=== PATIENT | female | born 1965 | race Hispanic/Latino ===

== ENCOUNTER 2022-03-06 12:44 | Inpatient (IN) | payer MEDICARE ==
[2022-03-06] MEDS ORDERED: INSULIN REGULAR, HUMAN 100 UNITS/1 ML SUB-Q ONE (21:03)
[2022-03-06] MEDS: traZODone 50 MG TAB PO SCH (21:57)
[2022-03-06] MEDS: INSULIN LISPRO 100 UNIT/ML SUB-Q SCH (22:05)
[2022-03-07] MEDS ORDERED: DEXTROSE 50% IN WATER (25GM) 50 ML SYRINGE IV ONE (05:00)
[2022-03-07] MEDS ORDERED: glipiZIDE 10 MG TAB PO SCH (08:00)
--- NOTE | 2022-03-07 08:32 | History and Physical Report ---
GP History & Physical - History of Present Illness Date of admission: 03/06/22 Date of Examination: 03/07/22 Reason for Admission: Danger to self, Danger to others, Failure of Outpatient Treatment Chief Complaint: suicidal ideation History of Present Illness: The patient is a 56 year old female with history of schizoaffective disorder who is admitted for continued stabilization. The patient presented to the ED with s uicidal ideation and auditory hallucinations, off medications for 3 days. The patient was seen today. She is calm, alert and oriented x4. She reports ongoing depression and suicidal ideation for the past 5 days. She reports stressors such as " I'm trying to move to another location and I have to pack everything by myself which is stressful." She endorses depression with suicidal ideation however, she has no plan; the patient also admits having auditory hallucinations " voices telling me to harm myself." She denies homicidal and visual hallucinations. PAST PSYCHIATRIC HISTORY: Diagnoses: schizoaffective Suicide attempts or Self-harm behavior:Yes Prior psychiatric hospitalizations: Yes Substance Abuse history: Denies Previous psychiatric medications tried: Effexor, Remeron, Seroquel Outpatient treatment: Denies PAST MEDICAL HISTORY: Family Psychiatric History: None reported or documented SOCIAL HISTORY Marital Status: Single Living Arrangements: Lives alone Employment Status: Unemployed Access to guns/weapons: Denies Education: 12th grade History of Abuse:Denies Legal History: Denies REVIEW OF SYSTEMS Constitutional: Negative for weight loss ENT: Negative for stridor Respiratory: Negative for cough or hemoptysis All other systems reviewed and are negative MENTAL STATUS EXAMINATION General Appearance and Behavior: Age appropriate, wearing appropriate clothes, cooperative, polite with questioning, good eye contact Cooperation: cooperative Psychomotor Behavior: Psychomotor normal Mood: depressed Affect and affective range: congruent with stated affect Thought Process: Goal directed Thought Content: suicidal/hallucinations Speech: Normal volume, Regular rate and rhythm Suicidal Ideation: Yes Homicidal Ideation: Denies Hallucination: Auditory Delusions: None Impulse Control: Limited Insight and Judgment: Limited Memory: Intact Attention: attentive Orientation: Alert and oriented Diagnosis: Schizoaffective Disorder Treatment Plan Patient admitted for inpatient psychiatric evaluation, medication adjustment and close monitoring The patient's behavior, mood, sleep and appetite will be closely monitored. Patient enrolled in individual and group therapeutic sessions and encouraged to attend. Patient provided with a safe and structured environment. Patient's physical health needs will be addressed by the Hospitalist. Hospitalist Consulted Labs including CBC, CMP, Lipid profile and Hemoglobin A1C levels ordered for baseline reference Social Assessment will be completed and the Track Grinder will work with patient and family to ensure a suitable and safe disposition Medication adjustment will be made as clinically indicated Continue home meds Usual Wellness Mandaen/Preservation: - Start Trazodone 50 mg po QHS & 50 mg po QHS PRN between 10 PM & 2 AM for insomnia - Start Melatonin 5 mg po QHS to promote circadian rhythm The patient agreed on the treatment plan, understood the risk, benefit, alternative treatment, potential consequence of no treatment, and gave informed consent. Estimated days: 7 Post hospital care: primary care provider, psychiatric provider Case staffed with Dr. Tee Legal Status: Voluntary Reaction to Hospitalization: Accepting Medications and Allergies Allergies Allergy/AdvReac Type Severity Reaction Status Date / Time Penicillins Allergy Rash Verified 03/06/22 18:02 prochlorperazine Allergy Seizure Verified 03/06/22 18:03 [From Compazine] codeine AdvReac Vomiting Verified 03/06/22 18:04 Home Medications Medication Instructions Recorded Confirmed Last Taken Type ARIPiprazole [Abilify] 30 mg PO QDAY 03/06/22 03/06/22 Unknown History AtorvaSTATin [Lipitor] 20 mg PO QHS 03/06/22 03/06/22 Unknown History Levothyroxine [Synthroid] 88 mcg PO QAM 03/06/22 03/06/22 Unknown History Mirtazapine [Remeron] 30 mg PO QHS 03/06/22 03/06/22 Unknown History Trazodone HCl 150 mg PO QHS 03/06/22 03/06/22 Unknown History Venlafaxine [Effexor] 75 mg PO QDAY 03/06/22 03/06/22 Unknown History carvediloL [Coreg] 3.125 mg PO BID 03/06/22 03/06/22 Unknown History glipiZIDE [Glucotrol] 1 tab PO BID 03/06/22 03/06/22 Unknown History hydrOXYzine HCL [Atarax] 25 mg PO QDAY 03/06/22 03/06/22 Unknown History metFORMIN [Glucophage] 500 mg PO BID 03/06/22 03/06/22 Unknown History ARIPiprazole [Aripiprazole] 30 mg PO DAILY 03/07/22 03/07/22 Unknown History Venlafaxine HCl [Venlafaxine HCl 150 mg PO DAILY 03/07/22 03/07/22 Unknown History ER] Active Meds: Active Medications Atorvastatin Calcium (Atorvastatin 20 Mg Tab) 20 mg PO QHS [facility] Last Admin: 03/06/22 21:58 Dose: 20 mg Carvedilol (Carvedilol 3.125 Mg Tab) 3.125 mg PO BID [facility] Glipizide (Glipizide 10 Mg Tab) 10 mg PO BIDDIAB [facility] Insulin Human Lispro (Insulin Lispro 100 Unit/Ml) 0 unit SUB-Q ACHS [facility]; Protocol Last Admin: 03/06/22 22:05 Dose: Not Given Metformin HCl (Metformin 500 Mg Tab) 500 mg PO BIDDIAB [facility] Trazodone HCl (Trazodone 50 Mg Tab) 150 mg PO QHS [facility] Last Admin: 03/06/22 21:57 Dose: 150 mg Results - Results Labs/Vitals: Laboratory Last Values POC Glucose 238 mg/dL (70-105) H 03/07/22 06:13 Last Vital Signs Temp 98.4 F 03/06/22 22:00 Pulse 98 H 03/06/22 22:00 Resp 18 03/06/22 22:00 BP 137/60 03/06/22 22:00 Pulse Ox 96 03/06/22 22:00 Physical Examination - Constitutional Vitals: Vital Signs Temp Pulse Resp BP Pulse Ox 98.4 F 98 H 18 137/60 96 03/06/22 22:00 03/06/22 22:00 03/06/22 22:00 03/06/22 22:00 03/06/22 22:00 Temperature -Last 24 Hours Temperature 98.4 F Temperature 98.4 F Mental Status Exam - Vital signs Last Vital Signs Temp 98.4 F 03/06/22 22:00 Pulse 98 H 03/06/22 22:00 Resp 18 03/06/22 22:00 BP 137/60 03/06/22 22:00 Pulse Ox 96 03/06/22 22:00 Physician Certification - Certification Statement Physician Certification Statement: This is an acknowledgement statement that IRLANDA LOPES is a 56 year old F who requires inpatient psychiatric admission for treatment which could reasonably be expected to improve the patient's condition for Estimated period of time patient will need to remain in the hospital: [ ] Plan for post-hospital care: [ ]
[2022-03-07] MEDS: INSULIN LISPRO 100 UNIT/ML SUB-Q SCH ×4 (09:20→21:25)
[2022-03-07] MEDS ORDERED: INSULIN LISPRO 100 UNIT/ML SUB-Q NR (09:21)
[2022-03-07] MEDS: carvediloL 3.125 MG TAB PO SCH ×2 (09:44→21:24)
[2022-03-07] MEDS: hydrOXYzine HCL 25 MG TAB PO SCH (09:44)
[2022-03-07] MEDS: ARIPiprazole 15 MG TAB PO SCH (09:45)
[2022-03-07] MEDS: metFORMIN 500 MG TAB PO SCH ×2 (09:45→16:26)
[2022-03-07] MEDS ORDERED: ARIPIPRAZOLE 30 MG PO SCH (10:00)
[2022-03-07] MEDS ORDERED: VENLAFAXINE HCL 150 MG PO SCH (10:00)
[2022-03-07] MEDS ORDERED: VENLAFAXINE 75 MG TAB PO SCH (10:00)
[2022-03-07] MEDS: VENLAFAXINE 75 MG TAB PO SCH (10:29)
[2022-03-07] MEDS: LEVOTHYROXINE 88 MCG TAB PO SCH (10:32)
--- NOTE | 2022-03-07 11:41 | Consultation ---
History of Present Illness - Reason for Consult Consult date: 03/07/22 Diabetes mellitus Requesting physician: SEBASTIAN VELASQUEZ - History of Present Illness The patient is a 56 year old female with history of DM, cad, chf, depression, bipolar, schizoaffective disorder who is admitted for continued stabilization. The patient presented to the ED with suicidal ideation and auditory hallucinations, off medications for 3 days. The patient was seen today. She is calm, alert and oriented x4. She reports ongoing depression and suicidal ideation for the past 5 days. She reports stressors such as " I'm trying to move to another location and I have to pack everything by myself which is stressful." She endorses depression with suicidal ideation however, she has no plan; the patient also admits having auditory hallucinations " voices telling me to harm myself." She denies homicidal and visual hallucinations. PAST PSYCHIATRIC HISTORY: Diagnoses: schizoaffective Suicide attempts or Self-harm behavior:Yes Prior psychiatric hospitalizations: Yes Substance Abuse history: Denies Previous psychiatric medications tried: Effexor, Remeron, Seroquel Past History Past Medical History: anemia, diabetes Medications and Allergies Allergies Allergy/AdvReac Type Severity Reaction Status Date / Time Penicillins Allergy Rash Verified 03/06/22 18:02 prochlorperazine Allergy Seizure Verified 03/06/22 18:03 [From Compazine] codeine AdvReac Vomiting Verified 03/06/22 18:04 Home Medications Medication Instructions Recorded Confirmed Last Taken Type ARIPiprazole [Abilify] 30 mg PO QDAY 03/06/22 03/06/22 Unknown History AtorvaSTATin [Lipitor] 20 mg PO QHS 03/06/22 03/06/22 Unknown History Levothyroxine [Synthroid] 88 mcg PO QAM 03/06/22 03/06/22 Unknown History Mirtazapine [Remeron] 30 mg PO QHS 03/06/22 03/06/22 Unknown History Trazodone HCl 150 mg PO QHS 03/06/22 03/06/22 Unknown History Venlafaxine [Effexor] 75 mg PO QDAY 03/06/22 03/06/22 Unknown History carvediloL [Coreg] 3.125 mg PO BID 03/06/22 03/06/22 Unknown History glipiZIDE [Glucotrol] 1 tab PO BID 03/06/22 03/06/22 Unknown History hydrOXYzine HCL [Atarax] 25 mg PO QDAY 03/06/22 03/06/22 Unknown History metFORMIN [Glucophage] 500 mg PO BID 03/06/22 03/06/22 Unknown History ARIPiprazole [Aripiprazole] 30 mg PO DAILY 03/07/22 03/07/22 Unknown History Venlafaxine HCl [Venlafaxine HCl 150 mg PO DAILY 03/07/22 03/07/22 Unknown History ER] Active Meds: Active Medications Aripiprazole (Aripiprazole 15 Mg Tab) 30 mg PO QDAY [facility] Last Admin: 03/07/22 09:45 Dose: 30 mg Atorvastatin Calcium (Atorvastatin 20 Mg Tab) 20 mg PO QHS [facility] Last Admin: 03/06/22 21:58 Dose: 20 mg Carvedilol (Carvedilol 3.125 Mg Tab) 3.125 mg PO BID [facility] Last Admin: 03/07/22 09:44 Dose: 3.125 mg Glipizide ([facility] 10 Mg Tab) [facility] Hydroxyzine HCl (Hydroxyzine Hcl 25 Mg Tab) 25 mg PO QDAY [facility] Last Admin: 03/07/22 09:44 Dose: 25 mg Insulin Human Lispro (Insulin Lispro 100 Unit/Ml) 0 unit SUB-Q [facility]; Protocol Last Admin: 03/07/22 09:20 Dose: 10 unit Levothyroxine Sodium (Levothyroxine 88 Mcg Tab) 88 mcg PO DAILY@0600 [facility] Last Admin: 03/07/22 10:32 Dose: 88 mcg Metformin HCl (Metformin 500 Mg Tab) 500 mg PO BIDDIAB [facility] Last Admin: 03/07/22 09:45 Dose: 500 mg Trazodone HCl (Trazodone 50 Mg Tab) 150 mg PO QHS [facility] Last Admin: 03/06/22 21:57 Dose: 150 mg Venlafaxine HCl (Venlafaxine 75 Mg Tab) 225 mg PO DAILY [facility] Last Admin: 03/07/22 10:29 Dose: 225 mg Review of Systems All systems: negative Ears, nose, mouth and throat: no ear pain, no ear discharge, no tinnitis, no decreased hearing, no nose pain, no nasal congestion, no sinus pressure, no mouth pain, no dysphagia, no sore throat, no swelling in mouth Cardiovascular: no orthopnea, no palpitations, no edema, no syncope, no lightheadedness, no shortness of breath, no high blood pressure Respiratory: no cough, no cough with sputum, no hemoptysis Gastrointestinal: no nausea, no vomiting, no diarrhea, no constipation, no melena, no hematochezia Genitourinary Female: no pelvic pain, no flank pain, no urinary frequency, no stress incontinence, no incomplete emptying Musculoskeletal: no neck pain, no arm numbness/tingling, no low back pain, no shooting leg pain, no muscle weakness, no muscle cramps Exam - Physical Exam Narrative exam: VITAL SIGNS: Reviewed. GENERAL: The patient appears normally developed, Vital signs as documented. HEAD: No signs of head trauma. EYES: Pupils are equal. Extraocular motions intact. EARS: Hearing grossly intact. MOUTH: Oropharynx is normal. NECK: No adenopathy, no JVD. CHEST: Chest with clear breath sounds bilaterally. No wheezes, rales, or rhonchi. CARDIAC: Regular rate and rhythm. S1 and S2, without murmurs, gallops, or rubs. VASCULAR: No Edema. Peripheral pulses normal and equal in all extremities. ABDOMEN: Soft, non tender and non distended. No rebound or guarding, and no masses palpated. Bowel Sounds normal. MUSCULOSKELETAL: Good range of motion of all major joints. Extremities without clubbing, cyanosis or edema. NEUROLOGIC EXAM: Alert and oriented x 3 No focal sensory or strength deficits. Speech normal. Follows commands. PSYCHIATRIC: Mood normal. SKIN: detail exam as documented in skin assessment - Constitutional Vitals: Temp Pulse Resp BP Pulse Ox 98.4 F 102 H 18 121/88 96 03/06/22 22:00 03/07/22 09:44 03/06/22 22:00 03/07/22 09:44 03/06/22 22:00 Results - Labs Labs: Abnormal lab results 03/06/22 03/07/22 03/07/22 Range/Units 23:33 01:37 04:42 POC Glucose 582 H 241 H 38 L (70-105) mg/dL 03/07/22 03/07/22 03/07/22 Range/Units 05:08 06:13 06:58 POC Glucose 131 H 238 H 263 H (70-105) mg/dL 03/07/22 03/07/22 03/07/22 Range/Units 08:02 09:02 10:24 POC Glucose 266 H 441 H 367 H (70-105) mg/dL Assessment and Plan The patient is a 56 year old female with history of DM, cad, chf, depression, bipolar, schizoaffective disorder who is admitted for continued stabilization. The patient presented to the ED with suicidal ideation and auditory hallucinations, off medications for 3 days. The patient was seen today. She is calm, alert and oriented x4. She reports ongoing depression and suicidal ideation for the past 5 days. She reports stressors such as " I'm trying to move to another location and I have to pack everything by myself which is stressful." She endorses depression with suicidal ideation however, she has no plan; the patient also admits having auditory hallucinations " voices telling me to harm myself." She denies homicidal and visual hallucinations. Uncontrolled DM HTN Hypothyrodisim plan Adjust insulin management Continue home meds Discussed with nursing staff overnight the patient had experienced hypoglycemia and that subsequently hypoglycemia. We will hold glipizide a.m. dose and only can have her take her p.m. dose. We will monitor blood glucose before meals and at bedtime patient tolerated her diet this morning and finished 90% of meal on her tray. DVT/GI prophy
[2022-03-07] MEDS: traZODone 50 MG TAB PO SCH (21:23)
[2022-03-07] MEDS: glipiZIDE 10 MG TAB PO SCH (21:24)
[2022-03-08] MEDS: LEVOTHYROXINE 88 MCG TAB PO SCH (06:02)
[2022-03-08] MEDS: INSULIN LISPRO 100 UNIT/ML SUB-Q SCH ×4 (08:43→21:34)
[2022-03-08] MEDS: metFORMIN 500 MG TAB PO SCH ×2 (08:44→12:29)
--- NOTE | 2022-03-08 09:16 | Progress Note ---
Subjective Date of service: 03/08/22 Subjective Comment: 03/08: The patient was seen in her room. She reports feeling sad, states depression as 10/10 and continues have auditory hallucinations " voices saying to hurt myself." REVIEW OF SYSTEMS Constitutional: Negative for weight loss ENT: Negative for stridor Respiratory: Negative for cough or hemoptysis All other systems reviewed and are negative MENTAL STATUS EXAMINATION General Appearance and Behavior: Age appropriate, wearing appropriate clothes, cooperative, polite with questioning, good eye contact Cooperation: cooperative Psychomotor Behavior: Psychomotor normal Mood: depressed Affect and affective range: congruent with stated affect Thought Process: Goal directed Thought Content: hallucinations Speech: Normal volume, Regular rate and rhythm Suicidal Ideation:Denies Homicidal Ideation: Denies Hallucination: Auditory Delusions: None Impulse Control: Limited Insight and Judgment: Limited Memory: Intact Attention: attentive Orientation: Alert and oriented Diagnosis: Schizoaffective Disorder Treatment Plan Patient admitted for inpatient psychiatric evaluation, medication adjustment and close monitoring The patient's behavior, mood, sleep and appetite will be closely monitored. Patient enrolled in individual and group therapeutic sessions and encouraged to attend. Patient provided with a safe and structured environment. Patient's physical health needs will be addressed by the Hospitalist. Hospitalist Consulted Labs including CBC, CMP, Lipid profile and Hemoglobin A1C levels ordered for baseline reference Social Assessment will be completed and the Maintenance Service Technician will work with patient and family to ensure a suitable and safe disposition Medication adjustment will be made as clinically indicated Continue home meds Usual Wellness Temple/Preservation: - Start Trazodone 50 mg po QHS & 50 mg po QHS PRN between 10 PM & 2 AM for insomnia - Start Melatonin 5 mg po QHS to promote circadian rhythm The patient agreed on the treatment plan, understood the risk, benefit, alternative treatment, potential consequence of no treatment, and gave informed consent. Estimated days:6 Post hospital care: primary care provider, psychiatric provider Case staffed with Dr. Tee Legal Status: Voluntary Reaction to Hospitalization: Accepting Medications and Allergies Medications and Allergies Allergies Allergy/AdvReac Type Severity Reaction Status Date / Time Penicillins Allergy Rash Verified 03/06/22 18:02 prochlorperazine Allergy Seizure Verified 03/06/22 18:03 [From Compazine] codeine AdvReac Vomiting Verified 03/06/22 18:04 Home Medications Medication Instructions Recorded Confirmed Last Taken Type ARIPiprazole [Abilify] 30 mg PO QDAY 03/06/22 03/06/22 Unknown History AtorvaSTATin [Lipitor] 20 mg PO QHS 03/06/22 03/06/22 Unknown History Levothyroxine [Synthroid] 88 mcg PO QAM 03/06/22 03/06/22 Unknown History Mirtazapine [Remeron] 30 mg PO QHS 03/06/22 03/06/22 Unknown History Trazodone HCl 150 mg PO QHS 03/06/22 03/06/22 Unknown History Venlafaxine [Effexor] 75 mg PO QDAY 03/06/22 03/06/22 Unknown History carvediloL [Coreg] 3.125 mg PO BID 03/06/22 03/06/22 Unknown History glipiZIDE [Glucotrol] 1 tab PO BID 03/06/22 03/06/22 Unknown History hydrOXYzine HCL [Atarax] 25 mg PO QDAY 03/06/22 03/06/22 Unknown History metFORMIN [Glucophage] 500 mg PO BID 03/06/22 03/06/22 Unknown History ARIPiprazole [Aripiprazole] 30 mg PO DAILY 03/07/22 03/07/22 Unknown History Venlafaxine HCl [Venlafaxine HCl 150 mg PO DAILY 03/07/22 03/07/22 Unknown History ER] Active Meds: Active Medications Aripiprazole (Aripiprazole 15 Mg Tab) 30 mg PO QDAY [facility] Last Admin: 03/07/22 09:45 Dose: 30 mg Atorvastatin Calcium (Atorvastatin 20 Mg Tab) 20 mg PO QHS [facility] Last Admin: 03/07/22 21:24 Dose: 20 mg Carvedilol (Carvedilol 3.125 Mg Tab) 3.125 mg PO BID [facility] Last Admin: 03/07/22 21:24 Dose: 3.125 mg Glipizide (Glipizide 10 Mg Tab) 10 mg PO QHS [facility] Last Admin: 03/07/22 21:24 Dose: 10 mg Hydroxyzine HCl (Hydroxyzine Hcl 25 Mg Tab) 25 mg PO QDAY [facility] Last Admin: 03/07/22 09:44 Dose: 25 mg Insulin Human Lispro (Insulin Lispro 100 Unit/Ml) 0 unit SUB-Q [facility]; Protocol Last Admin: 03/08/22 08:43 Dose: 6 unit Levothyroxine Sodium (Levothyroxine 88 Mcg Tab) 88 mcg PO DAILY@0600 [facility] Last Admin: 03/08/22 06:02 Dose: 88 mcg Metformin HCl (Metformin 500 Mg Tab) 500 mg PO BIDDIAB [facility] Last Admin: 03/08/22 08:44 Dose: 500 mg Trazodone HCl (Trazodone 50 Mg Tab) 150 mg PO QHS [facility] Last Admin: 03/07/22 21:23 Dose: 150 mg Venlafaxine HCl (Venlafaxine 75 Mg Tab) 225 mg PO DAILY [facility] Last Admin: 03/07/22 10:29 Dose: 225 mg Results - Results Labs/Vitals: Laboratory Last Values POC Glucose 286 mg/dL (70-105) H 03/08/22 06:10 Last Vital Signs Temp 98.5 F 03/07/22 22:00 Pulse 86 03/07/22 22:00 Resp 18 03/07/22 22:00 BP 121/61 03/07/22 22:00 Pulse Ox 96 03/07/22 22:00
[2022-03-08] MEDS: ARIPiprazole 15 MG TAB PO SCH (09:34)
[2022-03-08] MEDS: VENLAFAXINE 75 MG TAB PO SCH (09:34)
[2022-03-08] MEDS: hydrOXYzine HCL 25 MG TAB PO SCH (09:35)
[2022-03-08] MEDS: carvediloL 3.125 MG TAB PO SCH ×2 (09:35→21:08)
--- NOTE | 2022-03-08 11:08 | Progress Note ---
Assessment and Plan Assessment and plan: The patient is a 56 year old female with history of DM, cad, chf, depression, bipolar, schizoaffective disorder who is admitted for continued stabilization. The patient presented to the ED with suicidal ideation and auditory hallucinations, off medications for 3 days. The patient was seen today. She is c yojana, alert and oriented x4. She reports ongoing depression and suicidal ideation for the past 5 days. She reports stressors such as " I'm trying to move to another location and I have to pack everything by myself which is stressful." She endorses depression with suicidal ideation however, she has no plan; the patient also admits having auditory hallucinations " voices telling me to harm myself." She denies homicidal and visual hallucinations. Uncontrolled DM HTN Hypothyrodisim plan Adjust insulin management Continue home meds Increased Metoform to 100mg bid check renal function in 2 days awaiting labs ordered 2 days ago Discussed with nursing staff overnight the patient had experienced hypoglycemia and that subsequently hypoglycemia. We will hold glipizide a.m. dose and only can have her take her p.m. dose. We will monitor blood glucose before meals and at bedtime patient tolerated her diet this morning and finished 90% of meal on her tray. DVT/GI prophy History Interval history: Patient seen and examined this morning resting comfortably no new complaints. Blood sugars improved Hospitalist Physical - Physical exam Narrative exam: VITAL SIGNS: Reviewed. GENERAL: The patient appears normally developed, Vital signs as documented. HEAD: No signs of head trauma. EYES: Pupils are equal. Extraocular motions intact. EARS: Hearing grossly intact. MOUTH: Oropharynx is normal. NECK: No adenopathy, no JVD. CHEST: Chest with clear breath sounds bilaterally. No wheezes, rales, or rhonchi. CARDIAC: Regular rate and rhythm. S1 and S2, without murmurs, gallops, or rubs. VASCULAR: No Edema. Peripheral pulses normal and equal in all extremities. ABDOMEN: Soft, non tender and non distended. No rebound or guarding, and no masses palpated. Bowel Sounds normal. MUSCULOSKELETAL: Good range of motion of all major joints. Extremities without clubbing, cyanosis or edema. NEUROLOGIC EXAM: Alert and oriented x 3 No focal sensory or strength deficits. Speech normal. Follows commands. PSYCHIATRIC: Mood normal. SKIN: detail exam as documented in skin assessment - Constitutional Vitals: Temp Pulse Resp BP Pulse Ox 98.5 F 100 H 18 109/72 96 03/07/22 22:00 03/08/22 09:35 03/07/22 22:00 03/08/22 09:35 03/07/22 22:00 Results - Labs Labs: Laboratory Last Values POC Glucose 286 mg/dL (70-105) H 03/08/22 06:10 [place]/IV: Voiding Method Toilet Active Medications - Current Medications Current Medications: Generic Name Dose Route Start Last Admin Trade Name Myrna PRN Reason Stop Dose Admin Aripiprazole 30 mg 03/07/22 10:00 03/08/22 09:34 Aripiprazole 15 Mg Tab PO 30 mg QDAY [facility] Administration Atorvastatin Calcium 20 mg 03/06/22 22:00 03/07/22 21:24 Atorvastatin 20 Mg Tab PO 20 mg QHS [facility] Administration Carvedilol 3.125 mg 03/07/22 10:00 03/08/22 09:35 Carvedilol 3.125 Mg Tab PO 3.125 mg BID [facility] Administration Glipizide 10 mg 03/07/22 22:00 03/07/22 21:24 Glipizide 10 Mg Tab PO 10 mg QHS [facility] Administration Hydroxyzine HCl 25 mg 03/07/22 10:00 03/08/22 09:35 Hydroxyzine Hcl 25 Mg Tab PO 25 mg QDAY [facility] Administration Insulin Human Lispro 0 unit 03/06/22 22:00 03/08/22 08:43 Insulin Lispro 100 Unit/Ml SUB-Q 6 unit ACHS [facility] Administration Protocol Levothyroxine Sodium 88 mcg 03/07/22 10:00 03/08/22 06:02 Levothyroxine 88 Mcg Tab PO 88 mcg DAILY@0600 [facility] Administration Metformin HCl 1,000 mg 03/08/22 12:00 Metformin 500 Mg Tab PO BIDDIAB [facility] Trazodone HCl 150 mg 03/06/22 22:00 03/07/22 21:23 Trazodone 50 Mg Tab PO 150 mg QHS [facility] Administration Venlafaxine HCl 225 mg 03/07/22 10:00 03/08/22 09:34 Venlafaxine 75 Mg Tab PO 225 mg DAILY [facility] Administration
[2022-03-08 11:40] LABS: Basophils % (Auto) 0.1 % (0.0-1.8); Eosinophils # (Auto) 0.1 K/mm3 (0.0-0.4); Eosinophils % (Auto) 1.6 % (0.0-4.3); Hematocrit 38.6 % (30.3-42.9); Lymphocytes # (Auto) 2.2 K/mm3 (1.2-5.4); Lymphocytes % (Auto) 24.4 % (13.4-35.0); Mean Corpuscular HGB Conc 34 % (30-34); Mean Corpuscular Volume 87 fl (79-97); Monocytes # (Auto) 0.8 K/mm3 (0.0-0.8); Monocytes % (Auto) 9.3 % (0.0-7.3); Platelet Count 268 K/mm3 (140-440); Red Blood Count 4.43 M/mm3 (3.65-5.03); Red Cell Distribution Width 13.5 % (13.2-15.2)
[2022-03-08 11:59] LABS: Calcium 9.6 mg/dL (8.4-10.2); Chol/HDL Ratio 2.54 %
[2022-03-08] MEDS: traZODone 50 MG TAB PO SCH (21:09)
[2022-03-08] MEDS: glipiZIDE 10 MG TAB PO SCH (21:09)
[2022-03-09] MEDS: LEVOTHYROXINE 88 MCG TAB PO SCH (06:18)
[2022-03-09] MEDS: INSULIN LISPRO 100 UNIT/ML SUB-Q SCH ×3 (07:48→17:26)
[2022-03-09] MEDS: metFORMIN 500 MG TAB PO SCH ×3 (07:49→16:50)
[2022-03-09] MEDS: ARIPiprazole 15 MG TAB PO SCH (09:22)
[2022-03-09] MEDS: VENLAFAXINE 75 MG TAB PO SCH (09:22)
[2022-03-09] MEDS: carvediloL 3.125 MG TAB PO SCH ×2 (09:26→21:29)
[2022-03-09] MEDS: hydrOXYzine HCL 25 MG TAB PO SCH (09:26)
--- NOTE | 2022-03-09 12:08 | Progress Note ---
Subjective Date of service: 03/09/22 Principal diagnosis: Schizoaffective Disorder Subjective Comment: The patient was seen today. She says she is not doing well. The patient denies SI/HI, but states she is hearing voices telling her to hurt herself. She endorses feeling depressed. REVIEW OF SYSTEMS Constitutional: Negative for weight loss ENT: Negative for stridor Respiratory: Negative for cough or hemoptysis All other systems reviewed and are negative MENTAL STATUS EXAMINATION General Appearance and Behavior: Age appropriate, wearing appropriate clothes, cooperative, polite with questioning, good eye contact Cooperation: cooperative Psychomotor Behavior: Psychomotor normal Mood: depressed Affect and affective range: congruent with stated affect Thought Process: Goal directed Thought Content: hallucinations Speech: Normal volume, Regular rate and rhythm Suicidal Ideation:Denies Homicidal Ideation: Denies Hallucination: Auditory Delusions: None Impulse Control: Limited Insight and Judgment: Limited Memory: Intact Attention: attentive Orientation: Alert and oriented Diagnosis: Schizoaffective Disorder Treatment Plan Patient admitted for inpatient psychiatric evaluation, medication adjustment and close monitoring The patient's behavior, mood, sleep and appetite will be closely monitored. Patient enrolled in individual and group therapeutic sessions and encouraged to attend. Patient provided with a safe and structured environment. Patient's physical health needs will be addressed by the Hospitalist. Hospitalist Consulted Labs including CBC, CMP, Lipid profile and Hemoglobin A1C levels ordered for baseline reference Social Assessment will be completed and the Obstetric Anaesthetist will work with patient and family to ensure a suitable and safe disposition Medication adjustment will be made as clinically indicated Start Home Mirtazepine 30mg po qhs Usual Wellness Denominational/Preservation: - Start Trazodone 50 mg po QHS & 50 mg po QHS PRN between 10 PM & 2 AM for insomnia - Start Melatonin 5 mg po QHS to promote circadian rhythm The patient agreed on the treatment plan, understood the risk, benefit, alternative treatment, potential consequence of no treatment, and gave informed consent. Estimated days:6 Post hospital care: primary care provider, psychiatric provider Case staffed with Dr. Tee Medications and Allergies Allergies Allergy/AdvReac Type Severity Reaction Status Date / Time Penicillins Allergy Rash Verified 03/06/22 18:02 prochlorperazine Allergy Seizure Verified 03/06/22 18:03 [From Compazine] codeine AdvReac Vomiting Verified 03/06/22 18:04 Home Medications Medication Instructions Recorded Confirmed Last Taken Type ARIPiprazole [Abilify] 30 mg PO QDAY 03/06/22 03/06/22 Unknown History AtorvaSTATin [Lipitor] 20 mg PO QHS 03/06/22 03/06/22 Unknown History Levothyroxine [Synthroid] 88 mcg PO QAM 03/06/22 03/06/22 Unknown History Mirtazapine [Remeron] 30 mg PO QHS 03/06/22 03/06/22 Unknown History Trazodone HCl 150 mg PO QHS 03/06/22 03/06/22 Unknown History Venlafaxine [Effexor] 75 mg PO QDAY 03/06/22 03/06/22 Unknown History carvediloL [Coreg] 3.125 mg PO BID 03/06/22 03/06/22 Unknown History glipiZIDE [Glucotrol] 1 tab PO BID 03/06/22 03/06/22 Unknown History hydrOXYzine HCL [Atarax] 25 mg PO QDAY 03/06/22 03/06/22 Unknown History metFORMIN [Glucophage] 500 mg PO BID 03/06/22 03/06/22 Unknown History ARIPiprazole [Aripiprazole] 30 mg PO DAILY 03/07/22 03/07/22 Unknown History Venlafaxine HCl [Venlafaxine HCl 150 mg PO DAILY 03/07/22 03/07/22 Unknown History ER] Active Meds: Active Medications Aripiprazole (Aripiprazole 15 Mg Tab) 30 mg PO QDAY REPLACED BY [facility] Last Admin: 03/09/22 09:22 Dose: 30 mg Atorvastatin Calcium (Atorvastatin 20 Mg Tab) 20 mg PO QHS REPLACED BY [facility] Last Admin: 03/08/22 21:09 Dose: 20 mg Carvedilol (Carvedilol 3.125 Mg Tab) 3.125 mg PO BID REPLACED BY [facility] Last Admin: 03/09/22 09:26 Dose: 3.125 mg Glipizide (Glipizide 10 Mg Tab) 10 mg PO QHS REPLACED BY [facility] Last Admin: 03/08/22 21:09 Dose: 10 mg Hydroxyzine HCl (Hydroxyzine Hcl 25 Mg Tab) 25 mg PO QDAY REPLACED BY [facility] Last Admin: 03/09/22 09:26 Dose: 25 mg Insulin Human Lispro (Insulin Lispro 100 Unit/Ml) 0 unit SUB-Q [facility] REPLACED BY [facility]; Protocol Last Admin: 03/09/22 12:01 Dose: 3 unit Levothyroxine Sodium (Levothyroxine 88 Mcg Tab) 88 mcg PO DAILY@0600 REPLACED BY [facility] Last Admin: 03/09/22 06:18 Dose: 88 mcg Metformin HCl (Metformin 500 Mg Tab) 1,000 mg PO BIDDIAB REPLACED BY [facility] Last Admin: 03/09/22 07:50 Dose: Not Given Trazodone HCl (Trazodone 50 Mg Tab) 150 mg PO QHS REPLACED BY [facility] Last Admin: 03/08/22 21:09 Dose: 150 mg Venlafaxine HCl (Venlafaxine 75 Mg Tab) 225 mg PO DAILY REPLACED BY [facility] Last Admin: 03/09/22 09:22 Dose: 225 mg Results - Results Labs/Vitals: Laboratory Last Values WBC 9.0 K/mm3 (4.5-11.0) 03/08/22 10:37 RBC 4.43 M/mm3 (3.65-5.03) 03/08/22 10:37 Hgb 13.0 gm/dl (10.1-14.3) 03/08/22 10:37 Hct 38.6 % (30.3-42.9) 03/08/22 10:37 MCV 87 fl (79-97) 03/08/22 10:37 MCH 29 pg (28-32) 03/08/22 10:37 MCHC 34 % (30-34) 03/08/22 10:37 RDW 13.5 % (13.2-15.2) 03/08/22 10:37 Plt Count 268 K/mm3 (140-440) 03/08/22 10:37 Lymph % (Auto) 24.4 % (13.4-35.0) 03/08/22 10:37 [place] % (Auto) 9.3 % (0.0-7.3) H 03/08/22 10:37 Eos % (Auto) 1.6 % (0.0-4.3) 03/08/22 10:37 Baso % (Auto) 0.1 % (0.0-1.8) 03/08/22 10:37 Lymph # (Auto) 2.2 K/mm3 (1.2-5.4) 03/08/22 10:37 [place] # (Auto) 0.8 K/mm3 (0.0-0.8) 03/08/22 10:37 Eos # (Auto) 0.1 K/mm3 (0.0-0.4) 03/08/22 10:37 Baso # (Auto) 0.0 K/mm3 (0.0-0.1) 03/08/22 10:37 Seg Neutrophils % 64.6 % (40.0-70.0) 03/08/22 10:37 Seg Neutrophils # 5.8 K/mm3 (1.8-7.7) 03/08/22 10:37 Sodium 130 mmol/L (137-145) L 03/08/22 10:37 Potassium 4.3 mmol/L (3.6-5.0) 03/08/22 10:37 Chloride 94.2 mmol/L (98-107) L 03/08/22 10:37 Carbon Dioxide 28 mmol/L (22-30) 03/08/22 10:37 Anion Gap 12 mmol/L 03/08/22 10:37 BUN 42 mg/dL (7-17) H 03/08/22 10:37 Creatinine 1.3 mg/dL (0.6-1.2) H 03/08/22 10:37 Estimated GFR 43 ml/min 03/08/22 10:37 BUN/Creatinine Ratio 32 % 03/08/22 10:37 Glucose 357 mg/dL (65-100) H 03/08/22 10:37 POC Glucose 181 mg/dL (70-105) H 03/09/22 06:26 Calcium 9.6 mg/dL (8.4-10.2) 03/08/22 10:37 Total Bilirubin 0.30 mg/dL (0.1-1.2) 03/08/22 10:37 AST 39 units/L (5-40) 03/08/22 10:37 ALT 34 units/L (7-56) 03/08/22 10:37 Alkaline Phosphatase 97 units/L (35-129) 03/08/22 10:37 Total Protein 6.0 g/dL (6.3-8.2) L 03/08/22 10:37 Albumin 4.0 g/dL (3.9-5) 03/08/22 10:37 Albumin/Globulin Ratio 2.0 % 03/08/22 10:37 Triglycerides 111 mg/dL (2-149) 03/08/22 10:37 Cholesterol 168 mg/dL (50-199) 03/08/22 10:37 LDL Cholesterol Direct 81 mg/dL (50-130) 03/08/22 10:37 HDL Cholesterol 66 mg/dL (40-59) H 03/08/22 10:37 Cholesterol/HDL Ratio 2.54 % 03/08/22 10:37 TSH 7.980 mlU/mL (0.270-4.200) H 03/08/22 10:37 Last Vital Signs Temp 97.5 F L 03/09/22 06:02 Pulse 98 H 03/09/22 09:26 Resp 17 03/09/22 06:02 BP 133/68 03/09/22 09:26 Pulse Ox 95 03/09/22 09:25
--- NOTE | 2022-03-09 16:42 | Progress Note ---
Assessment and Plan Assessment and plan: The patient is a 56 year old female with history of DM, cad, chf, depression, bipolar, schizoaffective disorder who is admitted for continued stabilization. The patient presented to the ED with suicidal ideation and auditory hallucinations, off medications for 3 days. The patient was seen today. She is c yojana, alert and oriented x4. She reports ongoing depression and suicidal ideation for the past 5 days. She reports stressors such as " I'm trying to move to another location and I have to pack everything by myself which is stressful." She endorses depression with suicidal ideation however, she has no plan; the patient also admits having auditory hallucinations " voices telling me to harm myself." She denies homicidal and visual hallucinations. Assessment and plan --Uncontrolled DM diabetes mellitus] Blood sugars reasonable level --HTN; well controlled --Hypothyrodisim; stable plan; continue to Adjust insulin management Continue home meds Increased Metoform to 1000mg bid check renal function in 2 days awaiting labs ordered 2 days ago Discussed with nursing staff overnight the patient had experienced hypoglycemia and that subsequently hypoglycemia. Morning glipizide is held, patient is only on p.m. dose Continue Accu-Cheks sliding scale coverage DVT prophylaxis; SCDs while resting Ambulate as tolerated Closely monitor the patient and adjust management as needed We will follow the patient along with you Call us with questions History Interval history: I have seen and examined the patient at the bedside Patient's chart and records reviewed No new events reported by the nursing staff Patient states that she feels tired Vital signs noted Hospitalist Physical - Constitutional Vitals: Temp Pulse Resp BP Pulse Ox 97.5 F L 98 H 17 133/68 95 03/09/22 06:02 03/09/22 09:26 03/09/22 06:02 03/09/22 09:26 03/09/22 09:25 General appearance: Present: no acute distress, well-nourished - EENT Eyes: Present: PERRL, EOM intact - Neck Neck: Present: supple, normal ROM - Respiratory Respiratory effort: normal Respiratory: bilateral: diminished, negative: rales, rhonchi, wheezing - Cardiovascular Rhythm: regular Heart Sounds: Present: S1 & S2 - Extremities Extremities: no ischemia, No edema - Abdominal General gastrointestinal: soft, non-tender, non-distended, normal bowel sounds - Integumentary Integumentary: Present: clear, warm - Psychiatric Psychiatric: appropriate mood/affect, cooperative - Neurologic Neurologic: CNII-XII intact, moves all extremities Results - Labs CBC & Chem 7: 03/08/22 10:37 03/08/22 10:37 Labs: Laboratory Last Values WBC 9.0 K/mm3 (4.5-11.0) 03/08/22 10:37 RBC 4.43 M/mm3 (3.65-5.03) 03/08/22 10:37 Hgb 13.0 gm/dl (10.1-14.3) 03/08/22 10:37 Hct 38.6 % (30.3-42.9) 03/08/22 10:37 MCV 87 fl (79-97) 03/08/22 10:37 MCH 29 pg (28-32) 03/08/22 10:37 MCHC 34 % (30-34) 03/08/22 10:37 RDW 13.5 % (13.2-15.2) 03/08/22 10:37 Plt Count 268 K/mm3 (140-440) 03/08/22 10:37 Lymph % (Auto) 24.4 % (13.4-35.0) 03/08/22 10:37 [place] % (Auto) 9.3 % (0.0-7.3) H 03/08/22 10:37 Eos % (Auto) 1.6 % (0.0-4.3) 03/08/22 10:37 Baso % (Auto) 0.1 % (0.0-1.8) 03/08/22 10:37 Lymph # (Auto) 2.2 K/mm3 (1.2-5.4) 03/08/22 10:37 [place] # (Auto) 0.8 K/mm3 (0.0-0.8) 03/08/22 10:37 Eos # (Auto) 0.1 K/mm3 (0.0-0.4) 03/08/22 10:37 Baso # (Auto) 0.0 K/mm3 (0.0-0.1) 03/08/22 10:37 Seg Neutrophils % 64.6 % (40.0-70.0) 03/08/22 10:37 Seg Neutrophils # 5.8 K/mm3 (1.8-7.7) 03/08/22 10:37 Sodium 130 mmol/L (137-145) L 03/08/22 10:37 Potassium 4.3 mmol/L (3.6-5.0) 03/08/22 10:37 Chloride 94.2 mmol/L (98-107) L 03/08/22 10:37 Carbon Dioxide 28 mmol/L (22-30) 03/08/22 10:37 Anion Gap 12 mmol/L 03/08/22 10:37 BUN 42 mg/dL (7-17) H 03/08/22 10:37 Creatinine 1.3 mg/dL (0.6-1.2) H 03/08/22 10:37 Estimated GFR 43 ml/min 03/08/22 10:37 BUN/Creatinine Ratio 32 % 03/08/22 10:37 Glucose 357 mg/dL (65-100) H 03/08/22 10:37 POC Glucose 169 mg/dL (70-105) H 03/09/22 11:30 Calcium 9.6 mg/dL (8.4-10.2) 03/08/22 10:37 Total Bilirubin 0.30 mg/dL (0.1-1.2) 03/08/22 10:37 AST 39 units/L (5-40) 03/08/22 10:37 ALT 34 units/L (7-56) 03/08/22 10:37 Alkaline Phosphatase 97 units/L (35-129) 03/08/22 10:37 Total Protein 6.0 g/dL (6.3-8.2) L 03/08/22 10:37 Albumin 4.0 g/dL (3.9-5) 03/08/22 10:37 Albumin/Globulin Ratio 2.0 % 03/08/22 10:37 Triglycerides 111 mg/dL (2-149) 03/08/22 10:37 Cholesterol 168 mg/dL (50-199) 03/08/22 10:37 LDL Cholesterol Direct 81 mg/dL (50-130) 03/08/22 10:37 HDL Cholesterol 66 mg/dL (40-59) H 03/08/22 10:37 Cholesterol/HDL Ratio 2.54 % 03/08/22 10:37 TSH 7.980 mlU/mL (0.270-4.200) H 03/08/22 10:37 [place]/IV: Voiding Method Toilet Active Medications - Current Medications Current Medications: Generic Name Dose Route Start Last Admin Trade Name Myrna PRN Reason Stop Dose Admin Aripiprazole 30 mg 03/07/22 10:00 03/09/22 09:22 Aripiprazole 15 Mg Tab PO 30 mg QDAY ADEBAYO Administration Atorvastatin Calcium 20 mg 03/06/22 22:00 03/08/22 21:09 Atorvastatin 20 Mg Tab PO 20 mg QHS ADEBAYO Administration Carvedilol 3.125 mg 03/07/22 10:00 03/09/22 09:26 Carvedilol 3.125 Mg Tab PO 3.125 mg BID ADEBAYO Administration Glipizide 10 mg 03/07/22 22:00 03/08/22 21:09 Glipizide 10 Mg Tab PO 10 mg QHS ADEBAYO Administration Hydroxyzine HCl 25 mg 03/07/22 10:00 03/09/22 09:26 Hydroxyzine Hcl 25 Mg Tab PO 25 mg QDAY ADEBAYO Administration Insulin Human Lispro 0 unit 03/06/22 22:00 03/09/22 12:01 Insulin Lispro 100 Unit/Ml SUB-Q 3 unit ACHS ADEBAYO Administration Protocol Levothyroxine Sodium 88 mcg 03/07/22 10:00 03/09/22 06:18 Levothyroxine 88 Mcg Tab PO 88 mcg DAILY@0600 ADEBAYO Administration Metformin HCl 1,000 mg 03/08/22 12:00 03/09/22 07:50 Metformin 500 Mg Tab PO Not Given BIDDIAB ADEBAYO Mirtazapine 30 mg 03/09/22 22:00 Mirtazapine 30 Mg Tab PO QHS ADEBAYO Trazodone HCl 150 mg 03/06/22 22:00 03/08/22 21:09 Trazodone 50 Mg Tab PO 150 mg QHS ADEBAYO Administration Venlafaxine HCl 225 mg 03/07/22 10:00 03/09/22 09:22 Venlafaxine 75 Mg Tab PO 225 mg DAILY ADEBAYO Administration
[2022-03-09] MEDS: traZODone 50 MG TAB PO SCH (21:32)
[2022-03-09] MEDS: glipiZIDE 10 MG TAB PO SCH (21:32)
[2022-03-09] MEDS: MIRTAZAPINE 30 MG TAB PO SCH (21:32)
[2022-03-10] MEDS: INSULIN LISPRO 100 UNIT/ML SUB-Q SCH ×5 (00:09→21:13)
[2022-03-10] MEDS: LEVOTHYROXINE 88 MCG TAB PO SCH (06:01)
--- NOTE | 2022-03-10 08:21 | Progress Note ---
Subjective Date of service: 03/10/22 Principal diagnosis: Schizoaffective Disorder Subjective Comment: The patient was seen today. She is calm and cooperative. She is polite. She greets me with good morning. She denies SI/HI but states she is depressed. She also denies hallucinations. REVIEW OF SYSTEMS Constitutional: Negative for weight loss ENT: Negative for stridor Respiratory: Negative for cough or hemoptysis All other systems reviewed and are negative MENTAL STATUS EXAMINATION General Appearance and Behavior: Age appropriate, wearing appropriate clothes, cooperative, polite with questioning, good eye contact Cooperation: cooperative Psychomotor Behavior: Psychomotor normal Mood: depressed Affect and affective range: congruent with stated affect Thought Process: Goal directed Thought Content: None Speech: Normal volume, Regular rate and rhythm Suicidal Ideation:Denies Homicidal Ideation: Denies Hallucination: Denies Delusions: None Impulse Control: Limited Insight and Judgment: Limited Memory: Intact Attention: attentive Orientation: Alert and oriented Diagnosis: Schizoaffective Disorder Treatment Plan Patient admitted for inpatient psychiatric evaluation, medication adjustment and close monitoring The patient's behavior, mood, sleep and appetite will be closely monitored. Patient enrolled in individual and group therapeutic sessions and encouraged to attend. Patient provided with a safe and structured environment. Patient's physical health needs will be addressed by the Hospitalist. Hospitalist Consulted Labs including CBC, CMP, Lipid profile and Hemoglobin A1C levels ordered for baseline reference Social Assessment will be completed and the Women'S Swim Coach will work with patient and family to ensure a suitable and safe disposition Medication adjustment will be made as clinically indicated Mirtazepine 30mg po qhs Usual Wellness Nondenominational/Preservation: - Start Trazodone 50 mg po QHS & 50 mg po QHS PRN between 10 PM & 2 AM for insomnia - Start Melatonin 5 mg po QHS to promote circadian rhythm The patient agreed on the treatment plan, understood the risk, benefit, alternative treatment, potential consequence of no treatment, and gave informed consent. Estimated days:6 Post hospital care: primary care provider, psychiatric provider Case staffed with Dr. Tee Medications and Allergies Allergies Allergy/AdvReac Type Severity Reaction Status Date / Time Penicillins Allergy Rash Verified 03/06/22 18:02 prochlorperazine Allergy Seizure Verified 03/06/22 18:03 [From Compazine] codeine AdvReac Vomiting Verified 03/06/22 18:04 Home Medications Medication Instructions Recorded Confirmed Last Taken Type ARIPiprazole [Abilify] 30 mg PO QDAY 03/06/22 03/06/22 Unknown History AtorvaSTATin [Lipitor] 20 mg PO QHS 03/06/22 03/06/22 Unknown History Levothyroxine [Synthroid] 88 mcg PO QAM 03/06/22 03/06/22 Unknown History Mirtazapine [Remeron] 30 mg PO QHS 03/06/22 03/06/22 Unknown History Trazodone HCl 150 mg PO QHS 03/06/22 03/06/22 Unknown History Venlafaxine [Effexor] 75 mg PO QDAY 03/06/22 03/06/22 Unknown History carvediloL [Coreg] 3.125 mg PO BID 03/06/22 03/06/22 Unknown History glipiZIDE [Glucotrol] 1 tab PO BID 03/06/22 03/06/22 Unknown History hydrOXYzine HCL [Atarax] 25 mg PO QDAY 03/06/22 03/06/22 Unknown History metFORMIN [Glucophage] 500 mg PO BID 03/06/22 03/06/22 Unknown History ARIPiprazole [Aripiprazole] 30 mg PO DAILY 03/07/22 03/07/22 Unknown History Venlafaxine HCl [Venlafaxine HCl 150 mg PO DAILY 03/07/22 03/07/22 Unknown History ER] Active Meds: Active Medications Aripiprazole (Aripiprazole 15 Mg Tab) 30 mg PO QDAY [facility] Last Admin: 03/09/22 09:22 Dose: 30 mg Atorvastatin Calcium (Atorvastatin 20 Mg Tab) 20 mg PO QHS [facility] Last Admin: 03/09/22 21:34 Dose: 20 mg Carvedilol (Carvedilol 3.125 Mg Tab) 3.125 mg PO BID [facility] Last Admin: 03/09/22 21:29 Dose: 3.125 mg Glipizide (Glipizide 10 Mg Tab) 10 mg PO QHS [facility] Last Admin: 03/09/22 21:32 Dose: 10 mg Hydroxyzine HCl (Hydroxyzine Hcl 25 Mg Tab) 25 mg PO QDAY [facility] Last Admin: 03/09/22 09:26 Dose: 25 mg Insulin Human Lispro (Insulin Lispro 100 Unit/Ml) 0 unit SUB-Q [facility]; Protocol Last Admin: 03/10/22 00:09 Dose: Not Given Levothyroxine Sodium (Levothyroxine 88 Mcg Tab) 88 mcg PO DAILY@0600 [facility] Last Admin: 03/10/22 06:01 Dose: 88 mcg Metformin HCl (Metformin 500 Mg Tab) 1,000 mg PO BIDDIAB [facility] Last Admin: 03/09/22 16:50 Dose: 1,000 mg Mirtazapine (Mirtazapine 30 Mg Tab) 30 mg PO QHS [facility] Last Admin: 03/09/22 21:32 Dose: 30 mg Trazodone HCl (Trazodone 50 Mg Tab) 150 mg PO QHS [facility] Last Admin: 03/09/22 21:32 Dose: 150 mg Venlafaxine HCl (Venlafaxine 75 Mg Tab) 225 mg PO DAILY [facility] Last Admin: 03/09/22 09: Dose: 225 mg Results - Results Labs/Vitals: Laboratory Last Values WBC 9.0 K/mm3 (4.5-11.0) 03/08/22 10:37 RBC 4.43 M/mm3 (3.65-5.03) 03/08/22 10:37 Hgb 13.0 gm/dl (10.1-14.3) 03/08/22 10:37 Hct 38.6 % (30.3-42.9) 03/08/22 10:37 MCV 87 fl (79-97) 03/08/22 10:37 MCH 29 pg (28-32) 03/08/22 10:37 MCHC 34 % (30-34) 03/08/22 10:37 RDW 13.5 % (13.2-15.2) 03/08/22 10:37 Plt Count 268 K/mm3 (140-440) 03/08/22 10:37 Lymph % (Auto) 24.4 % (13.4-35.0) 03/08/22 10:37 [place] % (Auto) 9.3 % (0.0-7.3) H 03/08/22 10:37 Eos % (Auto) 1.6 % (0.0-4.3) 03/08/22 10:37 Baso % (Auto) 0.1 % (0.0-1.8) 03/08/22 10:37 Lymph # (Auto) 2.2 K/mm3 (1.2-5.4) 03/08/22 10:37 [place] # (Auto) 0.8 K/mm3 (0.0-0.8) 03/08/22 10:37 Eos # (Auto) 0.1 K/mm3 (0.0-0.4) 03/08/22 10:37 Baso # (Auto) 0.0 K/mm3 (0.0-0.1) 03/08/22 10:37 Seg Neutrophils % 64.6 % (40.0-70.0) 03/08/22 10:37 Seg Neutrophils # 5.8 K/mm3 (1.8-7.7) 03/08/22 10:37 Sodium 130 mmol/L (137-145) L 03/08/22 10:37 Potassium 4.3 mmol/L (3.6-5.0) 03/08/22 10:37 Chloride 94.2 mmol/L (98-107) L 03/08/22 10:37 Carbon Dioxide 28 mmol/L (22-30) 03/08/22 10:37 Anion Gap 12 mmol/L 03/08/22 10:37 BUN 42 mg/dL (7-17) H 03/08/22 10:37 Creatinine 1.3 mg/dL (0.6-1.2) H 03/08/22 10:37 Estimated GFR 43 ml/min 03/08/22 10:37 BUN/Creatinine Ratio 32 % 03/08/22 10:37 Glucose 357 mg/dL (65-100) H 03/08/22 10:37 POC Glucose 138 mg/dL (70-105) H 03/09/22 22:37 Calcium 9.6 mg/dL (8.4-10.2) 03/08/22 10:37 Total Bilirubin 0.30 mg/dL (0.1-1.2) 03/08/22 10:37 AST 39 units/L (5-40) 03/08/22 10:37 ALT 34 units/L (7-56) 03/08/22 10:37 Alkaline Phosphatase 97 units/L (35-129) 03/08/22 10:37 Total Protein 6.0 g/dL (6.3-8.2) L 03/08/22 10:37 Albumin 4.0 g/dL (3.9-5) 03/08/22 10:37 Albumin/Globulin Ratio 2.0 % 03/08/22 10:37 Triglycerides 111 mg/dL (2-149) 03/08/22 10:37 Cholesterol 168 mg/dL (50-199) 03/08/22 10:37 LDL Cholesterol Direct 81 mg/dL (50-130) 03/08/22 10:37 HDL Cholesterol 66 mg/dL (40-59) H 03/08/22 10:37 Cholesterol/HDL Ratio 2.54 % 03/08/22 10:37 TSH 7.980 mlU/mL (0.270-4.200) H 03/08/22 10:37 Last Vital Signs Temp 98.9 F 03/09/22 20:00 Pulse 103 H 03/09/22 21:29 Resp 16 03/09/22 20:00 BP 95/60 03/09/22 21:29 Pulse Ox 98 03/09/22 20:00
[2022-03-10] MEDS: metFORMIN 500 MG TAB PO SCH ×2 (09:30→16:04)
[2022-03-10] MEDS: ARIPiprazole 15 MG TAB PO SCH (09:30)
[2022-03-10] MEDS: VENLAFAXINE 75 MG TAB PO SCH (09:30)
[2022-03-10] MEDS: hydrOXYzine HCL 25 MG TAB PO SCH (09:30)
[2022-03-10] MEDS: carvediloL 3.125 MG TAB PO SCH ×2 (10:03→21:12)
--- NOTE | 2022-03-10 20:07 | Progress Note ---
Assessment and Plan Assessment and plan: The patient is a 56 year old female with history of DM, cad, chf, depression, bipolar, schizoaffective disorder who is admitted for continued stabilization. The patient presented to the ED with suicidal ideation and auditory hallucinations, off medications for 3 days. The patient was seen today. She is c yojana, alert and oriented x4. She reports ongoing depression and suicidal ideation for the past 5 days. She reports stressors such as " I'm trying to move to another location and I have to pack everything by myself which is stressful." She endorses depression with suicidal ideation however, she has no plan; the patient also admits having auditory hallucinations " voices telling me to harm myself." She denies homicidal and visual hallucinations. Assessment and plan --Uncontrolled DM diabetes mellitus] Blood sugars reasonable level --HTN; well controlled --Hypothyrodisim; stable plan; continue to Adjust insulin management Continue home meds Increased Metoform to 1000mg bid check renal function in 2 days awaiting labs ordered 2 days ago Discussed with nursing staff overnight the patient had experienced hypoglycemia and that subsequently hypoglycemia. Morning glipizide is held, patient is only on p.m. dose Continue Accu-Cheks sliding scale coverage DVT prophylaxis; SCDs while resting Ambulate as tolerated Thank you for this consult We will follow the patient along with you Call us with questions History Interval history: I have seen and examined the patient in her room today Patient's chart and medications reviewed No new overnight events reported by the nursing Patient says she feels better Vital signs reviewed Hospitalist Physical - Constitutional Vitals: Temp Pulse Resp BP Pulse Ox 97.9 F 104 H 18 106/75 97 03/10/22 09:21 03/10/22 10:03 03/10/22 09:21 03/10/22 10:03 03/10/22 09:21 General appearance: Present: no acute distress, well-nourished - EENT Eyes: Present: PERRL, EOM intact - Neck Neck: Present: supple, normal ROM - Respiratory Respiratory effort: normal Respiratory: bilateral: diminished, negative: rales, rhonchi, wheezing - Cardiovascular Rhythm: regular Heart Sounds: Present: S1 & S2 - Extremities Extremities: no ischemia, No edema - Abdominal General gastrointestinal: soft, non-tender, non-distended, normal bowel sounds - Integumentary Integumentary: Present: clear, warm - Psychiatric Psychiatric: appropriate mood/affect, cooperative - Neurologic Neurologic: moves all extremities Results - Labs CBC & Chem 7: 03/08/22 10:37 03/08/22 10:37 Labs: Laboratory Last Values WBC 9.0 K/mm3 (4.5-11.0) 03/08/22 10:37 RBC 4.43 M/mm3 (3.65-5.03) 03/08/22 10:37 Hgb 13.0 gm/dl (10.1-14.3) 03/08/22 10:37 Hct 38.6 % (30.3-42.9) 03/08/22 10:37 MCV 87 fl (79-97) 03/08/22 10:37 MCH 29 pg (28-32) 03/08/22 10:37 MCHC 34 % (30-34) 03/08/22 10:37 RDW 13.5 % (13.2-15.2) 03/08/22 10:37 Plt Count 268 K/mm3 (140-440) 03/08/22 10:37 Lymph % (Auto) 24.4 % (13.4-35.0) 03/08/22 10:37 [place] % (Auto) 9.3 % (0.0-7.3) H 03/08/22 10:37 Eos % (Auto) 1.6 % (0.0-4.3) 03/08/22 10:37 Baso % (Auto) 0.1 % (0.0-1.8) 03/08/22 10:37 Lymph # (Auto) 2.2 K/mm3 (1.2-5.4) 03/08/22 10:37 [place] # (Auto) 0.8 K/mm3 (0.0-0.8) 03/08/22 10:37 Eos # (Auto) 0.1 K/mm3 (0.0-0.4) 03/08/22 10:37 Baso # (Auto) 0.0 K/mm3 (0.0-0.1) 03/08/22 10:37 Seg Neutrophils % 64.6 % (40.0-70.0) 03/08/22 10:37 Seg Neutrophils # 5.8 K/mm3 (1.8-7.7) 03/08/22 10:37 Sodium 130 mmol/L (137-145) L 03/08/22 10:37 Potassium 4.3 mmol/L (3.6-5.0) 03/08/22 10:37 Chloride 94.2 mmol/L (98-107) L 03/08/22 10:37 Carbon Dioxide 28 mmol/L (22-30) 03/08/22 10:37 Anion Gap 12 mmol/L 03/08/22 10:37 BUN 42 mg/dL (7-17) H 03/08/22 10:37 Creatinine 1.3 mg/dL (0.6-1.2) H 03/08/22 10:37 Estimated GFR 43 ml/min 03/08/22 10:37 BUN/Creatinine Ratio 32 % 03/08/22 10:37 Glucose 357 mg/dL (65-100) H 03/08/22 10:37 POC Glucose 165 mg/dL (70-105) H 03/10/22 16:33 Calcium 9.6 mg/dL (8.4-10.2) 03/08/22 10:37 Total Bilirubin 0.30 mg/dL (0.1-1.2) 03/08/22 10:37 AST 39 units/L (5-40) 03/08/22 10:37 ALT 34 units/L (7-56) 03/08/22 10:37 Alkaline Phosphatase 97 units/L (35-129) 03/08/22 10:37 Total Protein 6.0 g/dL (6.3-8.2) L 03/08/22 10:37 Albumin 4.0 g/dL (3.9-5) 03/08/22 10:37 Albumin/Globulin Ratio 2.0 % 03/08/22 10:37 Triglycerides 111 mg/dL (2-149) 03/08/22 10:37 Cholesterol 168 mg/dL (50-199) 03/08/22 10:37 LDL Cholesterol Direct 81 mg/dL (50-130) 03/08/22 10:37 HDL Cholesterol 66 mg/dL (40-59) H 03/08/22 10:37 Cholesterol/HDL Ratio 2.54 % 03/08/22 10:37 TSH 7.980 mlU/mL (0.270-4.200) H 03/08/22 10:37 [place]/IV: Voiding Method Toilet Active Medications - Current Medications Current Medications: Generic Name Dose Route Start Last Admin Trade Name Myrna JAIMESN Reason Stop Dose Admin Aripiprazole 30 mg 03/07/22 10:00 03/10/22 09:30 Aripiprazole 15 Mg Tab PO 30 mg QDAY ADEBAYO Administration Atorvastatin Calcium 20 mg 03/06/22 22:00 03/09/22 21:34 Atorvastatin 20 Mg Tab PO 20 mg QHS ADEBAYO Administration Carvedilol 3.125 mg 03/07/22 10:00 03/10/22 10:03 Carvedilol 3.125 Mg Tab PO 3.125 mg BID ADEBAYO Administration Glipizide 10 mg 03/07/22 22:00 03/09/22 21:32 Glipizide 10 Mg Tab PO 10 mg QHS ADEBAYO Administration Hydroxyzine HCl 25 mg 03/07/22 10:00 03/10/22 09:30 Hydroxyzine Hcl 25 Mg Tab PO 25 mg QDAY ADEBAYO Administration Insulin Human Lispro 0 unit 03/06/22 22:00 03/10/22 16:30 Insulin Lispro 100 Unit/Ml SUB-Q 3 unit ACHS ADEBAYO Administration Protocol Levothyroxine Sodium 88 mcg 03/07/22 10:00 03/10/22 06:01 Levothyroxine 88 Mcg Tab PO 88 mcg DAILY@0600 ADEBAYO Administration Metformin HCl 1,000 mg 03/08/22 12:00 03/10/22 16:04 Metformin 500 Mg Tab PO 1,000 mg BIDDIAB ADEBAYO Administration Mirtazapine 30 mg 03/09/22 22:00 03/09/22 21:32 Mirtazapine 30 Mg Tab PO 30 mg QHS ADEBAYO Administration Trazodone HCl 150 mg 03/06/22 22:00 03/09/22 21:32 Trazodone 50 Mg Tab PO 150 mg QHS ADEBAYO Administration Venlafaxine HCl 225 mg 03/07/22 10:00 03/10/22 09:30 Venlafaxine 75 Mg Tab PO 225 mg DAILY ADEBAYO Administration
[2022-03-10] MEDS: traZODone 50 MG TAB PO SCH (21:12)
[2022-03-10] MEDS: MIRTAZAPINE 30 MG TAB PO SCH (21:12)
[2022-03-10] MEDS: glipiZIDE 10 MG TAB PO SCH (21:13)
[2022-03-11] MEDS: LEVOTHYROXINE 88 MCG TAB PO SCH (05:59)
--- NOTE | 2022-03-11 07:58 | Progress Note ---
Assessment and Plan Assessment and plan: The patient is a 56 year old female with history of DM, cad, chf, depression, bipolar, schizoaffective disorder who is admitted for continued stabilization. The patient presented to the ED with suicidal ideation and auditory hallucinations, off medications for 3 days. The patient was seen today. She is c yojana, alert and oriented x4. She reports ongoing depression and suicidal ideation for the past 5 days. She reports stressors such as " I'm trying to move to another location and I have to pack everything by myself which is stressful." She endorses depression with suicidal ideation however, she has no plan; the patient also admits having auditory hallucinations " voices telling me to harm myself." She denies homicidal and visual hallucinations. Assessment and plan --Uncontrolled DM diabetes mellitus] Blood sugars reasonable level Mild drop last evening however blood sugars picked up this morning Continue current diabetic medications Continue Accu-Cheks sliding scale coverage ADA diet Glipizide only p.m. dose and metformin twice daily Avoid hypoglycemia -- Mild PIETRO/vasomotor nephropathy on admission Creatinine 1.3, check BMP today[03/11] --HTN; well controlled Continue current antihypertensives and as needed medications --Hypothyrodisim; stable Continue Synthroid --DVT prophylaxis; SCDs while resting, ambulate as tolerated We will follow the patient along with you Call us with questions History Interval history: I have seen and examined the patient in the day room this morning. Patient's chart and medications reviewed No new overnight events reported by the nursing Patient had mild drop in blood sugars at 74 yesterday evening however this morning patient's blood sugars are in 200s Patient has no new complaints Anxious to go home Vital signs reviewed Hospitalist Physical - Constitutional Vitals: Temp Pulse Resp BP Pulse Ox 98.4 F 93 H 17 124/63 100 03/10/22 19:29 03/10/22 21:12 03/10/22 19:29 03/10/22 21:12 03/10/22 19:29 General appearance: Present: no acute distress, well-nourished - EENT Eyes: Present: PERRL, EOM intact - Neck Neck: Present: supple, normal ROM - Respiratory Respiratory effort: normal Respiratory: bilateral: diminished, negative: rales, rhonchi, wheezing - Cardiovascular Rhythm: regular Heart Sounds: Present: S1 & S2 - Extremities Extremities: no ischemia, No edema - Abdominal General gastrointestinal: soft, non-tender, non-distended, normal bowel sounds - Integumentary Integumentary: Present: clear, warm - Psychiatric Psychiatric: appropriate mood/affect, cooperative - Neurologic Neurologic: moves all extremities Results - Labs CBC & Chem 7: 03/08/22 10:37 03/08/22 10:37 Labs: Laboratory Last Values WBC 9.0 K/mm3 (4.5-11.0) 03/08/22 10:37 RBC 4.43 M/mm3 (3.65-5.03) 03/08/22 10:37 Hgb 13.0 gm/dl (10.1-14.3) 03/08/22 10:37 Hct 38.6 % (30.3-42.9) 03/08/22 10:37 MCV 87 fl (79-97) 03/08/22 10:37 MCH 29 pg (28-32) 03/08/22 10:37 MCHC 34 % (30-34) 03/08/22 10:37 RDW 13.5 % (13.2-15.2) 03/08/22 10:37 Plt Count 268 K/mm3 (140-440) 03/08/22 10:37 Lymph % (Auto) 24.4 % (13.4-35.0) 03/08/22 10:37 [place] % (Auto) 9.3 % (0.0-7.3) H 03/08/22 10:37 Eos % (Auto) 1.6 % (0.0-4.3) 03/08/22 10:37 Baso % (Auto) 0.1 % (0.0-1.8) 03/08/22 10:37 Lymph # (Auto) 2.2 K/mm3 (1.2-5.4) 03/08/22 10:37 [place] # (Auto) 0.8 K/mm3 (0.0-0.8) 03/08/22 10:37 Eos # (Auto) 0.1 K/mm3 (0.0-0.4) 03/08/22 10:37 Baso # (Auto) 0.0 K/mm3 (0.0-0.1) 03/08/22 10:37 Seg Neutrophils % 64.6 % (40.0-70.0) 03/08/22 10:37 Seg Neutrophils # 5.8 K/mm3 (1.8-7.7) 03/08/22 10:37 Sodium 130 mmol/L (137-145) L 03/08/22 10:37 Potassium 4.3 mmol/L (3.6-5.0) 03/08/22 10:37 Chloride 94.2 mmol/L (98-107) L 03/08/22 10:37 Carbon Dioxide 28 mmol/L (22-30) 03/08/22 10:37 Anion Gap 12 mmol/L 03/08/22 10:37 BUN 42 mg/dL (7-17) H 03/08/22 10:37 Creatinine 1.3 mg/dL (0.6-1.2) H 03/08/22 10:37 Estimated GFR 43 ml/min 03/08/22 10:37 BUN/Creatinine Ratio 32 % 03/08/22 10:37 Glucose 357 mg/dL (65-100) H 03/08/22 10:37 POC Glucose 271 mg/dL (70-105) H 03/11/22 06:24 Calcium 9.6 mg/dL (8.4-10.2) 03/08/22 10:37 Total Bilirubin 0.30 mg/dL (0.1-1.2) 03/08/22 10:37 AST 39 units/L (5-40) 03/08/22 10:37 ALT 34 units/L (7-56) 03/08/22 10:37 Alkaline Phosphatase 97 units/L (35-129) 03/08/22 10:37 Total Protein 6.0 g/dL (6.3-8.2) L 03/08/22 10:37 Albumin 4.0 g/dL (3.9-5) 03/08/22 10:37 Albumin/Globulin Ratio 2.0 % 03/08/22 10:37 Triglycerides 111 mg/dL (2-149) 03/08/22 10:37 Cholesterol 168 mg/dL (50-199) 03/08/22 10:37 LDL Cholesterol Direct 81 mg/dL (50-130) 03/08/22 10:37 HDL Cholesterol 66 mg/dL (40-59) H 03/08/22 10:37 Cholesterol/HDL Ratio 2.54 % 03/08/22 10:37 TSH 7.980 mlU/mL (0.270-4.200) H 03/08/22 10:37 [place]/IV: Voiding Method Toilet Active Medications - Current Medications Current Medications: Generic Name Dose Route Start Last Admin Trade Name Sheldonq PRN Reason Stop Dose Admin Aripiprazole 30 mg 03/07/22 10:00 03/10/22 09:30 Aripiprazole 15 Mg Tab PO 30 mg QDAY ADEBAYO Administration Atorvastatin Calcium 20 mg 03/06/22 22:00 03/10/22 21:13 Atorvastatin 20 Mg Tab PO 20 mg QHS ADEBAYO Administration Carvedilol 3.125 mg 03/07/22 10:00 03/10/22 21:12 Carvedilol 3.125 Mg Tab PO 3.125 mg BID ADEBAYO Administration Glipizide 10 mg 03/07/22 22:00 03/10/22 21:13 Glipizide 10 Mg Tab PO 10 mg QHS ADEBAYO Administration Hydroxyzine HCl 25 mg 03/07/22 10:00 03/10/22 09:30 Hydroxyzine Hcl 25 Mg Tab PO 25 mg QDAY ADEBAYO Administration Insulin Human Lispro 0 unit 03/06/22 22:00 03/10/22 21:13 Insulin Lispro 100 Unit/Ml SUB-Q Not Given ACHS [facility] Protocol Levothyroxine Sodium 88 mcg 03/07/22 10:00 03/11/22 05:59 Levothyroxine 88 Mcg Tab PO 88 mcg DAILY@0600 ADEBAYO Administration Metformin HCl 1,000 mg 03/08/22 12:00 03/10/22 16:04 Metformin 500 Mg Tab PO 1,000 mg BIDDIAB ADEBAYO Administration Mirtazapine 30 mg 03/09/22 22:00 03/10/22 21:12 Mirtazapine 30 Mg Tab PO 30 mg QHS ADEBAYO Administration Trazodone HCl 150 mg 03/06/22 22:00 03/10/22 21:12 Trazodone 50 Mg Tab PO 150 mg QHS ADEBAYO Administration Venlafaxine HCl 225 mg 03/07/22 10:00 03/10/22 09:30 Venlafaxine 75 Mg Tab PO 225 mg DAILY ADEBAYO Administration
[2022-03-11] MEDS: INSULIN LISPRO 100 UNIT/ML SUB-Q SCH ×4 (08:00→21:07)
--- NOTE | 2022-03-11 08:54 | Progress Note ---
Subjective Date of service: 03/11/22 Principal diagnosis: Schizoaffective Disorder Subjective Comment: The patient was seen today. She says she feels better, but still down. She denies SI/HI or hallucinations. She says she slept good. REVIEW OF SYSTEMS Constitutional: Negative for weight loss ENT: Negative for stridor Respiratory: Negative for cough or hemoptysis All other systems reviewed and are negative MENTAL STATUS EXAMINATION General Appearance and Behavior: Age appropriate, wearing appropriate clothes, cooperative, polite with questioning, good eye contact Cooperation: cooperative Psychomotor Behavior: Psychomotor normal Mood: depressed Affect and affective range: congruent with stated affect Thought Process: Goal directed Thought Content: None Speech: Normal volume, Regular rate and rhythm Suicidal Ideation:Denies Homicidal Ideation: Denies Hallucination: Denies Delusions: None Impulse Control: Limited Insight and Judgment: Limited Memory: Intact Attention: attentive Orientation: Alert and oriented Diagnosis: Schizoaffective Disorder Treatment Plan Patient admitted for inpatient psychiatric evaluation, medication adjustment and close monitoring The patient's behavior, mood, sleep and appetite will be closely monitored. Patient enrolled in individual and group therapeutic sessions and encouraged to attend. Patient provided with a safe and structured environment. Patient's physical health needs will be addressed by the Hospitalist. Hospitalist Consulted Labs including CBC, CMP, Lipid profile and Hemoglobin A1C levels ordered for baseline reference Social Assessment will be completed and the Internal Sales Engineer will work with patient and family to ensure a suitable and safe disposition Medication adjustment will be made as clinically indicated Mirtazepine 30mg po qhs Usual Wellness Jainism/Preservation: - Start Trazodone 50 mg po QHS & 50 mg po QHS PRN between 10 PM & 2 AM for insomnia - Start Melatonin 5 mg po QHS to promote circadian rhythm The patient agreed on the treatment plan, understood the risk, benefit, alternative treatment, potential consequence of no treatment, and gave informed consent. Estimated days:6 Post hospital care: primary care provider, psychiatric provider Case staffed with Dr. Tee Medications and Allergies Allergies Allergy/AdvReac Type Severity Reaction Status Date / Time Penicillins Allergy Rash Verified 03/06/22 18:02 prochlorperazine Allergy Seizure Verified 03/06/22 18:03 [From Compazine] codeine AdvReac Vomiting Verified 03/06/22 18:04 Home Medications Medication Instructions Recorded Confirmed Last Taken Type ARIPiprazole [Abilify] 30 mg PO QDAY 03/06/22 03/06/22 Unknown History AtorvaSTATin [Lipitor] 20 mg PO QHS 03/06/22 03/06/22 Unknown History Levothyroxine [Synthroid] 88 mcg PO QAM 03/06/22 03/06/22 Unknown History Mirtazapine [Remeron] 30 mg PO QHS 03/06/22 03/06/22 Unknown History Trazodone HCl 150 mg PO QHS 03/06/22 03/06/22 Unknown History Venlafaxine [Effexor] 75 mg PO QDAY 03/06/22 03/06/22 Unknown History carvediloL [Coreg] 3.125 mg PO BID 03/06/22 03/06/22 Unknown History glipiZIDE [Glucotrol] 1 tab PO BID 03/06/22 03/06/22 Unknown History hydrOXYzine HCL [Atarax] 25 mg PO QDAY 03/06/22 03/06/22 Unknown History metFORMIN [Glucophage] 500 mg PO BID 03/06/22 03/06/22 Unknown History ARIPiprazole [Aripiprazole] 30 mg PO DAILY 03/07/22 03/07/22 Unknown History Venlafaxine HCl [Venlafaxine HCl 150 mg PO DAILY 03/07/22 03/07/22 Unknown History ER] Active Meds: Active Medications Aripiprazole (Aripiprazole 15 Mg Tab) 30 mg PO QDAY [facility] Last Admin: 03/10/22 09:30 Dose: 30 mg Atorvastatin Calcium (Atorvastatin 20 Mg Tab) 20 mg PO QHS [facility] Last Admin: 03/10/22 21:13 Dose: 20 mg Carvedilol (Carvedilol 3.125 Mg Tab) 3.125 mg PO BID [facility] Last Admin: 03/10/22 21:12 Dose: 3.125 mg Glipizide (Glipizide 10 Mg Tab) 10 mg PO QHS [facility] Last Admin: 03/10/22 21:13 Dose: 10 mg Hydroxyzine HCl (Hydroxyzine Hcl 25 Mg Tab) 25 mg PO QDAY [facility] Last Admin: 03/10/22 09:30 Dose: 25 mg Insulin Human Lispro (Insulin Lispro 100 Unit/Ml) 0 unit SUB-Q [facility]; Protocol Last Admin: 03/10/22 21:13 Dose: Not Given Levothyroxine Sodium (Levothyroxine 88 Mcg Tab) 88 mcg PO DAILY@0600 [facility] Last Admin: 03/11/22 05:59 Dose: 88 mcg Metformin HCl (Metformin 500 Mg Tab) 1,000 mg PO BIDDIAB [facility] Last Admin: 03/10/22 16:04 Dose: 1,000 mg Mirtazapine (Mirtazapine 30 Mg Tab) 30 mg PO QHS [facility] Last Admin: 03/10/22 21:12 Dose: 30 mg Trazodone HCl (Trazodone 50 Mg Tab) 150 mg PO QHS [facility] Last Admin: 03/10/22 21:12 Dose: 150 mg Venlafaxine HCl (Venlafaxine 75 Mg Tab) 225 mg PO DAILY [facility] Last Admin: 03/10/22 09:30 Dose: 225 mg Results - Results Labs/Vitals: Laboratory Last Values WBC 9.0 K/mm3 (4.5-11.0) 03/08/22 10:37 RBC 4.43 M/mm3 (3.65-5.03) 03/08/22 10:37 Hgb 13.0 gm/dl (10.1-14.3) 03/08/22 10:37 Hct 38.6 % (30.3-42.9) 03/08/22 10:37 MCV 87 fl (79-97) 03/08/22 10:37 MCH 29 pg (28-32) 03/08/22 10:37 MCHC 34 % (30-34) 03/08/22 10:37 RDW 13.5 % (13.2-15.2) 03/08/22 10:37 Plt Count 268 K/mm3 (140-440) 03/08/22 10:37 Lymph % (Auto) 24.4 % (13.4-35.0) 03/08/22 10:37 [place] % (Auto) 9.3 % (0.0-7.3) H 03/08/22 10:37 Eos % (Auto) 1.6 % (0.0-4.3) 03/08/22 10:37 Baso % (Auto) 0.1 % (0.0-1.8) 03/08/22 10:37 Lymph # (Auto) 2.2 K/mm3 (1.2-5.4) 03/08/22 10:37 [place] # (Auto) 0.8 K/mm3 (0.0-0.8) 03/08/22 10:37 Eos # (Auto) 0.1 K/mm3 (0.0-0.4) 03/08/22 10:37 Baso # (Auto) 0.0 K/mm3 (0.0-0.1) 03/08/22 10:37 Seg Neutrophils % 64.6 % (40.0-70.0) 03/08/22 10:37 Seg Neutrophils # 5.8 K/mm3 (1.8-7.7) 03/08/22 10:37 Sodium 130 mmol/L (137-145) L 03/08/22 10:37 Potassium 4.3 mmol/L (3.6-5.0) 03/08/22 10:37 Chloride 94.2 mmol/L (98-107) L 03/08/22 10:37 Carbon Dioxide 28 mmol/L (22-30) 03/08/22 10:37 Anion Gap 12 mmol/L 03/08/22 10:37 BUN 42 mg/dL (7-17) H 03/08/22 10:37 Creatinine 1.3 mg/dL (0.6-1.2) H 03/08/22 10:37 Estimated GFR 43 ml/min 03/08/22 10:37 BUN/Creatinine Ratio 32 % 03/08/22 10:37 Glucose 357 mg/dL (65-100) H 03/08/22 10:37 POC Glucose 271 mg/dL (70-105) H 03/11/22 06:24 Calcium 9.6 mg/dL (8.4-10.2) 03/08/22 10:37 Total Bilirubin 0.30 mg/dL (0.1-1.2) 03/08/22 10:37 AST 39 units/L (5-40) 03/08/22 10:37 ALT 34 units/L (7-56) 03/08/22 10:37 Alkaline Phosphatase 97 units/L (35-129) 03/08/22 10:37 Total Protein 6.0 g/dL (6.3-8.2) L 03/08/22 10:37 Albumin 4.0 g/dL (3.9-5) 03/08/22 10:37 Albumin/Globulin Ratio 2.0 % 03/08/22 10:37 Triglycerides 111 mg/dL (2-149) 03/08/22 10:37 Cholesterol 168 mg/dL (50-199) 03/08/22 10:37 LDL Cholesterol Direct 81 mg/dL (50-130) 03/08/22 10:37 HDL Cholesterol 66 mg/dL (40-59) H 03/08/22 10:37 Cholesterol/HDL Ratio 2.54 % 03/08/22 10:37 TSH 7.980 mlU/mL (0.270-4.200) H 03/08/22 10:37 Last Vital Signs Temp 98.4 F 03/10/22 19:29 Pulse 93 H 03/10/22 21:12 Resp 17 03/10/22 19:29 BP 124/63 03/10/22 21:12 Pulse Ox 100 03/10/22 19:29
[2022-03-11] MEDS: metFORMIN 500 MG TAB PO SCH ×2 (09:00→17:50)
[2022-03-11] MEDS: VENLAFAXINE 75 MG TAB PO SCH (09:10)
[2022-03-11] MEDS: hydrOXYzine HCL 25 MG TAB PO SCH (09:52)
[2022-03-11] MEDS: ARIPiprazole 15 MG TAB PO SCH (09:53)
[2022-03-11] MEDS: carvediloL 3.125 MG TAB PO SCH ×2 (09:56→21:06)
[2022-03-11] MEDS: MIRTAZAPINE 30 MG TAB PO SCH (21:05)
[2022-03-11] MEDS: glipiZIDE 10 MG TAB PO SCH (21:05)
[2022-03-11] MEDS: traZODone 50 MG TAB PO SCH (21:05)
[2022-03-12] MEDS: LEVOTHYROXINE 88 MCG TAB PO SCH (05:57)
[2022-03-12] MEDS: metFORMIN 500 MG TAB PO SCH ×2 (08:00→17:29)
[2022-03-12] MEDS: INSULIN LISPRO 100 UNIT/ML SUB-Q SCH ×4 (08:14→22:21)
[2022-03-12] MEDS: hydrOXYzine HCL 25 MG TAB PO SCH (09:32)
[2022-03-12] MEDS: VENLAFAXINE 75 MG TAB PO SCH (09:33)
[2022-03-12] MEDS: ARIPiprazole 15 MG TAB PO SCH (09:35)
[2022-03-12] MEDS: carvediloL 3.125 MG TAB PO SCH ×2 (09:38→21:35)
--- NOTE | 2022-03-12 10:44 | Progress Note ---
Subjective Date of service: 03/12/22 Principal diagnosis: Schizoaffective Disorder Subjective Comment: The patient was seen today. She says she is doing much better. She denies SI/HI or hallucinations. Will discharge once outpatient resources are in place by to ensure continuity of mental wellness. REVIEW OF SYSTEMS Constitutional: Negative for weight loss ENT: Negative for stridor Respiratory: Negative for cough or hemoptysis All other systems reviewed and are negative MENTAL STATUS EXAMINATION General Appearance and Behavior: Age appropriate, wearing appropriate clothes, cooperative, polite with questioning, good eye contact Cooperation: cooperative Psychomotor Behavior: Psychomotor normal Mood: depressed Affect and affective range: congruent with stated affect Thought Process: Goal directed Thought Content: None Speech: Normal volume, Regular rate and rhythm Suicidal Ideation:Denies Homicidal Ideation: Denies Hallucination: Denies Delusions: None Impulse Control: Limited Insight and Judgment: Limited Memory: Intact Attention: attentive Orientation: Alert and oriented Diagnosis: Schizoaffective Disorder Treatment Plan Patient admitted for inpatient psychiatric evaluation, medication adjustment and close monitoring The patient's behavior, mood, sleep and appetite will be closely monitored. Patient enrolled in individual and group therapeutic sessions and encouraged to attend. Patient provided with a safe and structured environment. Patient's physical health needs will be addressed by the Hospitalist. Hospitalist Consulted Labs including CBC, CMP, Lipid profile and Hemoglobin A1C levels ordered for baseline reference Social Assessment will be completed and the Mapping Supervisor will work with patient and family to ensure a suitable and safe disposition Medication adjustment will be made as clinically indicated Mirtazepine 30mg po qhs Usual Wellness Nondenominational/Preservation: - Start Trazodone 50 mg po QHS & 50 mg po QHS PRN between 10 PM & 2 AM for insomnia - Start Melatonin 5 mg po QHS to promote circadian rhythm The patient agreed on the treatment plan, understood the risk, benefit, alternative treatment, potential consequence of no treatment, and gave informed consent. Estimated days:6 Post hospital care: primary care provider, psychiatric provider Case staffed with Dr. Tee Medications and Allergies Allergies Allergy/AdvReac Type Severity Reaction Status Date / Time Penicillins Allergy Rash Verified 03/06/22 18:02 prochlorperazine Allergy Seizure Verified 03/06/22 18:03 [From Compazine] codeine AdvReac Vomiting Verified 03/06/22 18:04 Home Medications Medication Instructions Recorded Confirmed Last Taken Type ARIPiprazole [Darrel] 30 mg PO QDAY 03/06/22 03/06/22 Unknown History AtorvaSTATin [Lipitor] 20 mg PO QHS 03/06/22 03/06/22 Unknown History Levothyroxine [Synthroid] 88 mcg PO QAM 03/06/22 03/06/22 Unknown History Mirtazapine [Remeron] 30 mg PO QHS 03/06/22 03/06/22 Unknown History Trazodone HCl 150 mg PO QHS 03/06/22 03/06/22 Unknown History Venlafaxine [Effexor] 75 mg PO QDAY 03/06/22 03/06/22 Unknown History carvediloL [Coreg] 3.125 mg PO BID 03/06/22 03/06/22 Unknown History glipiZIDE [Glucotrol] 1 tab PO BID 03/06/22 03/06/22 Unknown History hydrOXYzine HCL [Atarax] 25 mg PO QDAY 03/06/22 03/06/22 Unknown History metFORMIN [Glucophage] 500 mg PO BID 03/06/22 03/06/22 Unknown History ARIPiprazole [Aripiprazole] 30 mg PO DAILY 03/07/22 03/07/22 Unknown History Venlafaxine HCl [Venlafaxine HCl 150 mg PO DAILY 03/07/22 03/07/22 Unknown History ER] Active Meds: Active Medications Aripiprazole (Aripiprazole 15 Mg Tab) 30 mg PO QDAY [facility] Last Admin: 03/12/22 09:35 Dose: 30 mg Atorvastatin Calcium (Atorvastatin 20 Mg Tab) 20 mg PO QHS [facility] Last Admin: 03/11/22 21:05 Dose: 20 mg Carvedilol (Carvedilol 3.125 Mg Tab) 3.125 mg PO BID [facility] Last Admin: 03/12/22 09:38 Dose: Not Given Glipizide (Glipizide 10 Mg Tab) 10 mg PO QHS [facility] Last Admin: 03/11/22 21:05 Dose: 10 mg Hydroxyzine HCl (Hydroxyzine Hcl 25 Mg Tab) 25 mg PO QDAY [facility] Last Admin: 03/12/22 09:32 Dose: 25 mg Insulin Human Lispro (Insulin Lispro 100 Unit/Ml) 0 unit SUB-Q [facility]; Protocol Last Admin: 03/12/22 08:14 Dose: 6 unit Levothyroxine Sodium (Levothyroxine 88 Mcg Tab) 88 mcg PO DAILY@0600 [facility] Last Admin: 03/12/22 05:57 Dose: 88 mcg Metformin HCl (Metformin 500 Mg Tab) 1,000 mg PO BIDDIAB [facility] Last Admin: 03/12/22 08:00 Dose: Not Given Mirtazapine (Mirtazapine 30 Mg Tab) 30 mg PO QHS [facility] Last Admin: 03/11/22 21:05 Dose: 30 mg Trazodone HCl (Trazodone 50 Mg Tab) 150 mg PO QHS [facility] Last Admin: 03/11/22 21:05 Dose: 150 mg Venlafaxine HCl (Venlafaxine 75 Mg Tab) 225 mg PO DAILY [facility] Last Admin: 03/12/22 09:33 Dose: 225 mg Results - Results Labs/Vitals: Laboratory Last Values WBC 9.0 K/mm3 (4.5-11.0) 03/08/22 10:37 RBC 4.43 M/mm3 (3.65-5.03) 03/08/22 10:37 Hgb 13.0 gm/dl (10.1-14.3) 03/08/22 10:37 Hct 38.6 % (30.3-42.9) 03/08/22 10:37 MCV 87 fl (79-97) 03/08/22 10:37 MCH 29 pg (28-32) 03/08/22 10:37 MCHC 34 % (30-34) 03/08/22 10:37 RDW 13.5 % (13.2-15.2) 03/08/22 10:37 Plt Count 268 K/mm3 (140-440) 03/08/22 10:37 Lymph % (Auto) 24.4 % (13.4-35.0) 03/08/22 10:37 [place] % (Auto) 9.3 % (0.0-7.3) H 03/08/22 10:37 Eos % (Auto) 1.6 % (0.0-4.3) 03/08/22 10:37 Baso % (Auto) 0.1 % (0.0-1.8) 03/08/22 10:37 Lymph # (Auto) 2.2 K/mm3 (1.2-5.4) 03/08/22 10:37 [place] # (Auto) 0.8 K/mm3 (0.0-0.8) 03/08/22 10:37 Eos # (Auto) 0.1 K/mm3 (0.0-0.4) 03/08/22 10:37 Baso # (Auto) 0.0 K/mm3 (0.0-0.1) 03/08/22 10:37 Seg Neutrophils % 64.6 % (40.0-70.0) 03/08/22 10:37 Seg Neutrophils # 5.8 K/mm3 (1.8-7.7) 03/08/22 10:37 Sodium 130 mmol/L (137-145) L 03/08/22 10:37 Potassium 4.3 mmol/L (3.6-5.0) 03/08/22 10:37 Chloride 94.2 mmol/L (98-107) L 03/08/22 10:37 Carbon Dioxide 28 mmol/L (22-30) 03/08/22 10:37 Anion Gap 12 mmol/L 03/08/22 10:37 BUN 42 mg/dL (7-17) H 03/08/22 10:37 Creatinine 1.3 mg/dL (0.6-1.2) H 03/08/22 10:37 Estimated GFR 43 ml/min 03/08/22 10:37 BUN/Creatinine Ratio 32 % 03/08/22 10:37 Glucose 357 mg/dL (65-100) H 03/08/22 10:37 POC Glucose 269 mg/dL (70-105) H 03/12/22 06:38 Calcium 9.6 mg/dL (8.4-10.2) 03/08/22 10:37 Total Bilirubin 0.30 mg/dL (0.1-1.2) 03/08/22 10:37 AST 39 units/L (5-40) 03/08/22 10:37 ALT 34 units/L (7-56) 03/08/22 10:37 Alkaline Phosphatase 97 units/L (35-129) 03/08/22 10:37 Total Protein 6.0 g/dL (6.3-8.2) L 03/08/22 10:37 Albumin 4.0 g/dL (3.9-5) 03/08/22 10:37 Albumin/Globulin Ratio 2.0 % 03/08/22 10:37 Triglycerides 111 mg/dL (2-149) 03/08/22 10:37 Cholesterol 168 mg/dL (50-199) 03/08/22 10:37 LDL Cholesterol Direct 81 mg/dL (50-130) 03/08/22 10:37 HDL Cholesterol 66 mg/dL (40-59) H 03/08/22 10:37 Cholesterol/HDL Ratio 2.54 % 03/08/22 10:37 TSH 7.980 mlU/mL (0.270-4.200) H 03/08/22 10:37 Last Vital Signs Temp 98.2 F 03/12/22 06:08 Pulse 94 H 03/12/22 06:08 Resp 17 03/12/22 06:08 BP 114/63 03/12/22 06:08 Pulse Ox 95 03/12/22 06:08
[2022-03-12 11:35] LABS: Calcium 9.6 mg/dL (8.4-10.2)
--- NOTE | 2022-03-12 18:38 | Progress Note ---
Assessment and Plan Assessment and plan: The patient is a 56 year old female with history of DM, cad, chf, depression, bipolar, schizoaffective disorder who is admitted for continued stabilization. The patient presented to the ED with suicidal ideation and auditory hallucinations, off medications for 3 days. The patient was seen today. She is c yojana, alert and oriented x4. She reports ongoing depression and suicidal ideation for the past 5 days. She reports stressors such as " I'm trying to move to another location and I have to pack everything by myself which is stressful." She endorses depression with suicidal ideation however, she has no plan; the patient also admits having auditory hallucinations " voices telling me to harm myself." She denies homicidal and visual hallucinations. Patient has labile blood sugars Assessment and plan --Uncontrolled DM diabetes mellitus] Blood sugars mediated by Intermittent episodes of hypoglycemia Closely adjust metformin and glipizide dosages and timings As well as sliding scale coverage Avoid hypoglycemia Glipizide only p.m. dose and metformin twice daily Avoid hypoglycemia --Patient has some diarrhea probably due to metformin Imodium as needed, plenty of oral fluids -- Mild PIETRO/vasomotor nephropathy on admission Creatinine 1.3, resolved creatinine 1.1 --HTN; well controlled Continue current antihypertensives and as needed medications --Hypothyrodisim; stable Continue Synthroid --DVT prophylaxis; SCDs while resting, ambulate as tolerated We will follow the patient along with you Call us with questions History Interval history: I have seen and examined the patient at the bedside Patient's chart and medications reviewed No new events reported by the nursing Vital signs noted Patient complains of some diarrhea Hospitalist Physical - Constitutional Vitals: Temp Pulse Resp BP Pulse Ox 98.2 F 94 H 17 114/63 95 03/12/22 06:08 03/12/22 06:08 03/12/22 06:08 03/12/22 06:08 03/12/22 06:08 General appearance: Present: no acute distress, well-nourished - EENT Eyes: Present: PERRL, EOM intact - Neck Neck: Present: supple, normal ROM - Respiratory Respiratory effort: normal Respiratory: bilateral: diminished, negative: rales, rhonchi, wheezing - Cardiovascular Rhythm: regular Heart Sounds: Present: S1 & S2 - Extremities Extremities: no ischemia, No edema - Abdominal General gastrointestinal: soft, non-tender, non-distended, normal bowel sounds - Integumentary Integumentary: Present: clear, warm - Psychiatric Psychiatric: appropriate mood/affect, cooperative - Neurologic Neurologic: moves all extremities Results - Labs CBC & Chem 7: 03/08/22 10:37 03/11/22 09:20 Labs: Laboratory Last Values WBC 9.0 K/mm3 (4.5-11.0) 03/08/22 10:37 RBC 4.43 M/mm3 (3.65-5.03) 03/08/22 10:37 Hgb 13.0 gm/dl (10.1-14.3) 03/08/22 10:37 Hct 38.6 % (30.3-42.9) 03/08/22 10:37 MCV 87 fl (79-97) 03/08/22 10:37 MCH 29 pg (28-32) 03/08/22 10:37 MCHC 34 % (30-34) 03/08/22 10:37 RDW 13.5 % (13.2-15.2) 03/08/22 10:37 Plt Count 268 K/mm3 (140-440) 03/08/22 10:37 Lymph % (Auto) 24.4 % (13.4-35.0) 03/08/22 10:37 [place] % (Auto) 9.3 % (0.0-7.3) H 03/08/22 10:37 Eos % (Auto) 1.6 % (0.0-4.3) 03/08/22 10:37 Baso % (Auto) 0.1 % (0.0-1.8) 03/08/22 10:37 Lymph # (Auto) 2.2 K/mm3 (1.2-5.4) 03/08/22 10:37 [place] # (Auto) 0.8 K/mm3 (0.0-0.8) 03/08/22 10:37 Eos # (Auto) 0.1 K/mm3 (0.0-0.4) 03/08/22 10:37 Baso # (Auto) 0.0 K/mm3 (0.0-0.1) 03/08/22 10:37 Seg Neutrophils % 64.6 % (40.0-70.0) 03/08/22 10:37 Seg Neutrophils # 5.8 K/mm3 (1.8-7.7) 03/08/22 10:37 Sodium 134 mmol/L (137-145) L 03/11/22 09:20 Potassium 4.6 mmol/L (3.6-5.0) 03/11/22 09:20 Chloride 97.0 mmol/L (98-107) L 03/11/22 09:20 Carbon Dioxide 26 mmol/L (22-30) 03/11/22 09:20 Anion Gap 16 mmol/L 03/11/22 09:20 BUN 36 mg/dL (7-17) H 03/11/22 09:20 Creatinine 1.1 mg/dL (0.6-1.2) 03/11/22 09:20 Estimated GFR 52 ml/min 03/11/22 09:20 BUN/Creatinine Ratio 33 % 03/11/22 09:20 Glucose 327 mg/dL (65-100) H 03/11/22 09:20 POC Glucose 269 mg/dL (70-105) H 03/12/22 06:38 Calcium 9.6 mg/dL (8.4-10.2) 03/11/22 09:20 Total Bilirubin 0.30 mg/dL (0.1-1.2) 03/08/22 10:37 AST 39 units/L (5-40) 03/08/22 10:37 ALT 34 units/L (7-56) 03/08/22 10:37 Alkaline Phosphatase 97 units/L (35-129) 03/08/22 10:37 Total Protein 6.0 g/dL (6.3-8.2) L 03/08/22 10:37 Albumin 4.0 g/dL (3.9-5) 03/08/22 10:37 Albumin/Globulin Ratio 2.0 % 03/08/22 10:37 Triglycerides 111 mg/dL (2-149) 03/08/22 10:37 Cholesterol 168 mg/dL (50-199) 03/08/22 10:37 LDL Cholesterol Direct 81 mg/dL (50-130) 03/08/22 10:37 HDL Cholesterol 66 mg/dL (40-59) H 03/08/22 10:37 Cholesterol/HDL Ratio 2.54 % 03/08/22 10:37 TSH 7.980 mlU/mL (0.270-4.200) H 03/08/22 10:37 [place]/IV: Voiding Method Toilet Active Medications - Current Medications Current Medications: Generic Name Dose Route Start Last Admin Trade Name Myrna PRN Reason Stop Dose Admin Aripiprazole 30 mg 03/07/22 10:00 03/12/22 09:35 Aripiprazole 15 Mg Tab PO 30 mg QDAY [facility] Administration Atorvastatin Calcium 20 mg 03/06/22 22:00 03/11/22 21:05 Atorvastatin 20 Mg Tab PO 20 mg QHS [facility] Administration Carvedilol 3.125 mg 03/07/22 10:00 03/12/22 09:38 Carvedilol 3.125 Mg Tab PO Not Given BID [facility] Glipizide 10 mg 03/07/22 22:00 03/11/22 21:05 Glipizide 10 Mg Tab PO 10 mg QHS [facility] Administration Hydroxyzine HCl 25 mg 03/07/22 10:00 03/12/22 09:32 Hydroxyzine Hcl 25 Mg Tab PO 25 mg QDAY [facility] Administration Insulin Human Lispro 0 unit 03/06/22 22:00 03/12/22 17:26 Insulin Lispro 100 Unit/Ml SUB-Q 8 unit ACHS [facility] Administration Protocol Levothyroxine Sodium 88 mcg 03/07/22 10:00 03/12/22 05:57 Levothyroxine 88 Mcg Tab PO 88 mcg DAILY@0600 [facility] Administration Metformin HCl 1,000 mg 03/08/22 12:00 03/12/22 17:29 Metformin 500 Mg Tab PO 1,000 mg BIDDIAB [facility] Administration Mirtazapine 30 mg 03/09/22 22:00 03/11/22 21:05 Mirtazapine 30 Mg Tab PO 30 mg QHS [facility] Administration Trazodone HCl 150 mg 03/06/22 22:00 03/11/22 21:05 Trazodone 50 Mg Tab PO 150 mg QHS [facility] Administration Venlafaxine HCl 225 mg 03/07/22 10:00 03/12/22 09:33 Venlafaxine 75 Mg Tab PO 225 mg DAILY [facility] Administration
[2022-03-12] MEDS ORDERED: DIPHENOXYLATE/ATROPINE TAB PO ONE (20:00)
[2022-03-12] MEDS: MIRTAZAPINE 30 MG TAB PO SCH (21:34)
[2022-03-12] MEDS: traZODone 50 MG TAB PO SCH (21:34)
[2022-03-12] MEDS: glipiZIDE 10 MG TAB PO SCH (21:34)
[2022-03-13] MEDS: LEVOTHYROXINE 88 MCG TAB PO SCH (05:35)
[2022-03-13] MEDS: metFORMIN 500 MG TAB PO SCH ×2 (08:32→16:52)
[2022-03-13] MEDS: INSULIN LISPRO 100 UNIT/ML SUB-Q SCH ×4 (08:33→21:55)
--- NOTE | 2022-03-13 08:43 | Progress Note ---
Subjective Date of service: 03/13/22 Principal diagnosis: Schizoaffective Disorder Subjective Comment: The patient was seen today. She says she is doing much better. She is asking about going home. The patient denies SI/HI and hallucinations of any kind. REVIEW OF SYSTEMS Constitutional: Negative for weight loss ENT: Negative for stridor Respiratory: Negative for cough or hemoptysis All other systems reviewed and are negative MENTAL STATUS EXAMINATION General Appearance and Behavior: Age appropriate, wearing appropriate clothes, cooperative, polite with questioning, good eye contact Cooperation: cooperative Psychomotor Behavior: Psychomotor normal Mood: a lot better Affect and affective range: congruent with stated affect Thought Process: Goal directed Thought Content: None Speech: Normal volume, Regular rate and rhythm Suicidal Ideation:Denies Homicidal Ideation: Denies Hallucination: Denies Delusions: None Impulse Control: Limited Insight and Judgment: Limited Memory: Intact Attention: attentive Orientation: Alert and oriented Diagnosis: Schizoaffective Disorder Treatment Plan Patient admitted for inpatient psychiatric evaluation, medication adjustment and close monitoring The patient's behavior, mood, sleep and appetite will be closely monitored. Patient enrolled in individual and group therapeutic sessions and encouraged to attend. Patient provided with a safe and structured environment. Patient's physical health needs will be addressed by the Hospitalist. Hospitalist Consulted Labs including CBC, CMP, Lipid profile and Hemoglobin A1C levels ordered for baseline reference Social Assessment will be completed and the Flour Inspector will work with patient and family to ensure a suitable and safe disposition Medication adjustment will be made as clinically indicated Mirtazepine 30mg po qhs Usual Wellness Nondenominational/Preservation: - Start Trazodone 50 mg po QHS & 50 mg po QHS PRN between 10 PM & 2 AM for insomnia - Start Melatonin 5 mg po QHS to promote circadian rhythm The patient agreed on the treatment plan, understood the risk, benefit, alternative treatment, potential consequence of no treatment, and gave informed consent. Estimated days:6 Post hospital care: primary care provider, psychiatric provider Case staffed with Dr. Tee Medications and Allergies Allergies Allergy/AdvReac Type Severity Reaction Status Date / Time Penicillins Allergy Rash Verified 03/06/22 18:02 prochlorperazine Allergy Seizure Verified 03/06/22 18:03 [From Compazine] codeine AdvReac Vomiting Verified 03/06/22 18:04 Home Medications Medication Instructions Recorded Confirmed Last Taken Type ARIPiprazole [Abilify] 30 mg PO QDAY 03/06/22 03/06/22 Unknown History AtorvaSTATin [Lipitor] 20 mg PO QHS 03/06/22 03/06/22 Unknown History Levothyroxine [Synthroid] 88 mcg PO QAM 03/06/22 03/06/22 Unknown History Mirtazapine [Remeron] 30 mg PO QHS 03/06/22 03/06/22 Unknown History Trazodone HCl 150 mg PO QHS 03/06/22 03/06/22 Unknown History Venlafaxine [Effexor] 75 mg PO QDAY 03/06/22 03/06/22 Unknown History carvediloL [Coreg] 3.125 mg PO BID 03/06/22 03/06/22 Unknown History glipiZIDE [Glucotrol] 1 tab PO BID 03/06/22 03/06/22 Unknown History hydrOXYzine HCL [Atarax] 25 mg PO QDAY 03/06/22 03/06/22 Unknown History metFORMIN [Glucophage] 500 mg PO BID 03/06/22 03/06/22 Unknown History ARIPiprazole [Aripiprazole] 30 mg PO DAILY 03/07/22 03/07/22 Unknown History Venlafaxine HCl [Venlafaxine HCl 150 mg PO DAILY 03/07/22 03/07/22 Unknown History ER] Active Meds: Active Medications Aripiprazole (Aripiprazole 15 Mg Tab) 30 mg PO QDAY [facility] Last Admin: 03/12/22 09:35 Dose: 30 mg Atorvastatin Calcium (Atorvastatin 20 Mg Tab) 20 mg PO QHS [facility] Last Admin: 03/12/22 21:41 Dose: 20 mg Carvedilol (Carvedilol 3.125 Mg Tab) 3.125 mg PO BID [facility] Last Admin: 03/12/22 21:35 Dose: 3.125 mg Glipizide (Glipizide 10 Mg Tab) 10 mg PO QHS [facility] Last Admin: 03/12/22 21:34 Dose: 10 mg Hydroxyzine HCl (Hydroxyzine Hcl 25 Mg Tab) 25 mg PO QDAY [facility] Last Admin: 03/12/22 09:32 Dose: 25 mg Insulin Human Lispro (Insulin Lispro 100 Unit/Ml) 0 unit SUB-Q [facility]; Protocol Last Admin: 03/13/22 08:33 Dose: 4 unit Levothyroxine Sodium (Levothyroxine 88 Mcg Tab) 88 mcg PO DAILY@0600 [facility] Last Admin: 03/13/22 05:35 Dose: 88 mcg Metformin HCl (Metformin 500 Mg Tab) 1,000 mg PO BIDDIAB [facility] Last Admin: 03/13/22 08:32 Dose: 1,000 mg Mirtazapine (Mirtazapine 30 Mg Tab) 30 mg PO QHS [facility] Last Admin: 03/12/22 21:34 Dose: 30 mg Trazodone HCl (Trazodone 50 Mg Tab) 150 mg PO QHS [facility] Last Admin: 03/12/22 21:34 Dose: 150 mg Venlafaxine HCl (Venlafaxine 75 Mg Tab) 225 mg PO DAILY [facility] Last Admin: 03/12/22 09:33 Dose: 225 mg Results - Results Labs/Vitals: Laboratory Last Values WBC 9.0 K/mm3 (4.5-11.0) 03/08/22 10:37 RBC 4.43 M/mm3 (3.65-5.03) 03/08/22 10:37 Hgb 13.0 gm/dl (10.1-14.3) 03/08/22 10:37 Hct 38.6 % (30.3-42.9) 03/08/22 10:37 MCV 87 fl (79-97) 03/08/22 10:37 MCH 29 pg (28-32) 03/08/22 10:37 MCHC 34 % (30-34) 03/08/22 10:37 RDW 13.5 % (13.2-15.2) 03/08/22 10:37 Plt Count 268 K/mm3 (140-440) 03/08/22 10:37 Lymph % (Auto) 24.4 % (13.4-35.0) 03/08/22 10:37 [place] % (Auto) 9.3 % (0.0-7.3) H 03/08/22 10:37 Eos % (Auto) 1.6 % (0.0-4.3) 03/08/22 10:37 Baso % (Auto) 0.1 % (0.0-1.8) 03/08/22 10:37 Lymph # (Auto) 2.2 K/mm3 (1.2-5.4) 03/08/22 10:37 [place] # (Auto) 0.8 K/mm3 (0.0-0.8) 03/08/22 10:37 Eos # (Auto) 0.1 K/mm3 (0.0-0.4) 03/08/22 10:37 Baso # (Auto) 0.0 K/mm3 (0.0-0.1) 03/08/22 10:37 Seg Neutrophils % 64.6 % (40.0-70.0) 03/08/22 10:37 Seg Neutrophils # 5.8 K/mm3 (1.8-7.7) 03/08/22 10:37 Sodium 134 mmol/L (137-145) L 03/11/22 09:20 Potassium 4.6 mmol/L (3.6-5.0) 03/11/22 09:20 Chloride 97.0 mmol/L (98-107) L 03/11/22 09:20 Carbon Dioxide 26 mmol/L (22-30) 03/11/22 09:20 Anion Gap 16 mmol/L 03/11/22 09:20 BUN 36 mg/dL (7-17) H 03/11/22 09:20 Creatinine 1.1 mg/dL (0.6-1.2) 03/11/22 09:20 Estimated GFR 52 ml/min 03/11/22 09:20 BUN/Creatinine Ratio 33 % 03/11/22 09:20 Glucose 327 mg/dL (65-100) H 03/11/22 09:20 POC Glucose 226 mg/dL (70-105) H 03/12/22 19:26 Calcium 9.6 mg/dL (8.4-10.2) 03/11/22 09:20 Total Bilirubin 0.30 mg/dL (0.1-1.2) 03/08/22 10:37 AST 39 units/L (5-40) 03/08/22 10:37 ALT 34 units/L (7-56) 03/08/22 10:37 Alkaline Phosphatase 97 units/L (35-129) 03/08/22 10:37 Total Protein 6.0 g/dL (6.3-8.2) L 03/08/22 10:37 Albumin 4.0 g/dL (3.9-5) 03/08/22 10:37 Albumin/Globulin Ratio 2.0 % 03/08/22 10:37 Triglycerides 111 mg/dL (2-149) 03/08/22 10:37 Cholesterol 168 mg/dL (50-199) 03/08/22 10:37 LDL Cholesterol Direct 81 mg/dL (50-130) 03/08/22 10:37 HDL Cholesterol 66 mg/dL (40-59) H 03/08/22 10:37 Cholesterol/HDL Ratio 2.54 % 03/08/22 10:37 TSH 7.980 mlU/mL (0.270-4.200) H 03/08/22 10:37 Last Vital Signs Temp 97.5 F L 03/13/22 07:59 Pulse 104 H 03/13/22 07:59 Resp 18 03/13/22 07:59 BP 113/73 03/13/22 07:59 Pulse Ox 98 03/13/22 07:59
--- NOTE | 2022-03-13 08:45 | Event Note ---
Date: 03/13/22 The nurse on duty states that the patient has started complaining of chest pain. Instructed to call the on-call hospitalist and inform him of patient's complaints and symptoms. States she is placing the call now.
[2022-03-13] MEDS: ARIPiprazole 15 MG TAB PO SCH (10:16)
[2022-03-13] MEDS: VENLAFAXINE 75 MG TAB PO SCH (10:16)
[2022-03-13] MEDS: hydrOXYzine HCL 25 MG TAB PO SCH (10:17)
[2022-03-13] MEDS: carvediloL 3.125 MG TAB PO SCH ×2 (10:17→21:53)
--- NOTE | 2022-03-13 10:56 | Progress Note ---
Assessment and Plan - Patient Problems (1) Schizoaffective disorder Current Visit: Yes Status: Acute (2) Bipolar 1 disorder Current Visit: Yes Status: Acute (3) MDD (major depressive disorder) Current Visit: Yes Status: Acute (4) HTN (hypertension) Current Visit: Yes Status: Acute (5) Diabetes Current Visit: Yes Status: Acute (6) Nephropathy Current Visit: Yes Status: Acute (7) CHF (congestive heart failure) Current Visit: Yes Status: Acute (8) CAD (coronary artery disease) Current Visit: Yes Status: Acute (9) Advance care planning Current Visit: Yes Status: Acute (10) Preventative health care Current Visit: Yes Status: Acute History Interval history: 56 YO Female with HTN, DM complicated by Nephropathy, CHF, CAD, Hypothyroidism, MDD, Bioplar Disorder, Schizoaffective Disorder admitted to [facility] for psychiatric stabilization. Consult placed by Dr. Morejon for medical management. Pt seen and evaluated in the recreation room. Patient appears to be at baseline level of cognition and function. Hospitalist Physical - Constitutional Vitals: Temp Pulse Resp BP Pulse Ox 97.5 F L 104 H 18 113/73 98 03/13/22 07:59 03/13/22 10:17 03/13/22 07:59 03/13/22 10:17 03/13/22 07:59 General appearance: Present: no acute distress, well-nourished - EENT Eyes: Present: PERRL ENT: hearing intact - Neck Neck: Present: supple - Respiratory Respiratory effort: normal Respiratory: bilateral: CTA - Cardiovascular Rhythm: regular Heart Sounds: Present: S1 & S2 - Extremities Extremities: no ischemia Peripheral Pulses: within normal limits - Abdominal General gastrointestinal: soft, non-tender, non-distended - Integumentary Integumentary: Present: clear, dry - Psychiatric Psychiatric: cooperative - Neurologic Neurologic: CNII-XII intact Results - Labs CBC & Chem 7: 03/08/22 10:37 03/11/22 09:20 Labs: Laboratory Last Values WBC 9.0 K/mm3 (4.5-11.0) 03/08/22 10:37 RBC 4.43 M/mm3 (3.65-5.03) 03/08/22 10:37 Hgb 13.0 gm/dl (10.1-14.3) 03/08/22 10:37 Hct 38.6 % (30.3-42.9) 03/08/22 10:37 MCV 87 fl (79-97) 03/08/22 10:37 MCH 29 pg (28-32) 03/08/22 10:37 MCHC 34 % (30-34) 03/08/22 10:37 RDW 13.5 % (13.2-15.2) 03/08/22 10:37 Plt Count 268 K/mm3 (140-440) 03/08/22 10:37 Lymph % (Auto) 24.4 % (13.4-35.0) 03/08/22 10:37 [place] % (Auto) 9.3 % (0.0-7.3) H 03/08/22 10:37 Eos % (Auto) 1.6 % (0.0-4.3) 03/08/22 10:37 Baso % (Auto) 0.1 % (0.0-1.8) 03/08/22 10:37 Lymph # (Auto) 2.2 K/mm3 (1.2-5.4) 03/08/22 10:37 [place] # (Auto) 0.8 K/mm3 (0.0-0.8) 03/08/22 10:37 Eos # (Auto) 0.1 K/mm3 (0.0-0.4) 03/08/22 10:37 Baso # (Auto) 0.0 K/mm3 (0.0-0.1) 03/08/22 10:37 Seg Neutrophils % 64.6 % (40.0-70.0) 03/08/22 10:37 Seg Neutrophils # 5.8 K/mm3 (1.8-7.7) 03/08/22 10:37 Sodium 134 mmol/L (137-145) L 03/11/22 09:20 Potassium 4.6 mmol/L (3.6-5.0) 03/11/22 09:20 Chloride 97.0 mmol/L (98-107) L 03/11/22 09:20 Carbon Dioxide 26 mmol/L (22-30) 03/11/22 09:20 Anion Gap 16 mmol/L 03/11/22 09:20 BUN 36 mg/dL (7-17) H 03/11/22 09:20 Creatinine 1.1 mg/dL (0.6-1.2) 03/11/22 09:20 Estimated GFR 52 ml/min 03/11/22 09:20 BUN/Creatinine Ratio 33 % 03/11/22 09:20 Glucose 327 mg/dL (65-100) H 03/11/22 09:20 POC Glucose 226 mg/dL (70-105) H 03/12/22 19:26 Calcium 9.6 mg/dL (8.4-10.2) 03/11/22 09:20 Total Bilirubin 0.30 mg/dL (0.1-1.2) 03/08/22 10:37 AST 39 units/L (5-40) 03/08/22 10:37 ALT 34 units/L (7-56) 03/08/22 10:37 Alkaline Phosphatase 97 units/L (35-129) 03/08/22 10:37 Total Protein 6.0 g/dL (6.3-8.2) L 03/08/22 10:37 Albumin 4.0 g/dL (3.9-5) 03/08/22 10:37 Albumin/Globulin Ratio 2.0 % 03/08/22 10:37 Triglycerides 111 mg/dL (2-149) 03/08/22 10:37 Cholesterol 168 mg/dL (50-199) 03/08/22 10:37 LDL Cholesterol Direct 81 mg/dL (50-130) 03/08/22 10:37 HDL Cholesterol 66 mg/dL (40-59) H 03/08/22 10:37 Cholesterol/HDL Ratio 2.54 % 03/08/22 10:37 TSH 7.980 mlU/mL (0.270-4.200) H 03/08/22 10:37 [place]/IV: Voiding Method Toilet Active Medications - Current Medications Current Medications: Generic Name Dose Route Start Last Admin Trade Name Freq PRN Reason Stop Dose Admin Aripiprazole 30 mg 03/07/22 10:00 03/13/22 10:16 Aripiprazole 15 Mg Tab PO 30 mg QDAY ADEBAYO Administration Atorvastatin Calcium 20 mg 03/06/22 22:00 03/12/22 21:41 Atorvastatin 20 Mg Tab PO 20 mg QHS ADEBAYO Administration Carvedilol 3.125 mg 03/07/22 10:00 03/13/22 10:17 Carvedilol 3.125 Mg Tab PO 3.125 mg BID ADEBAYO Administration Glipizide 10 mg 03/07/22 22:00 03/12/22 21:34 Glipizide 10 Mg Tab PO 10 mg QHS ADEBAYO Administration Hydroxyzine HCl 25 mg 03/07/22 10:00 03/13/22 10:17 Hydroxyzine Hcl 25 Mg Tab PO 25 mg QDAY ADEBAYO Administration Insulin Human Lispro 0 unit 03/06/22 22:00 03/13/22 08:33 Insulin Lispro 100 Unit/Ml SUB-Q 4 unit ACHS ADEBAYO Administration Protocol Levothyroxine Sodium 88 mcg 03/07/22 10:00 03/13/22 05:35 Levothyroxine 88 Mcg Tab PO 88 mcg DAILY@0600 ADEBAYO Administration Metformin HCl 1,000 mg 03/08/22 12:00 03/13/22 08:32 Metformin 500 Mg Tab PO 1,000 mg BIDDIAB ADEBAYO Administration Mirtazapine 30 mg 03/09/22 22:00 03/12/22 21:34 Mirtazapine 30 Mg Tab PO 30 mg QHS ADEBAYO Administration Trazodone HCl 150 mg 03/06/22 22:00 03/12/22 21:34 Trazodone 50 Mg Tab PO 150 mg QHS ADEBAYO Administration Venlafaxine HCl 225 mg 03/07/22 10:00 03/13/22 10:16 Venlafaxine 75 Mg Tab PO 225 mg DAILY ADEBAYO Administration
[2022-03-13] MEDS: traZODone 50 MG TAB PO SCH (21:54)
[2022-03-13] MEDS: MIRTAZAPINE 30 MG TAB PO SCH (21:55)
[2022-03-13] MEDS: glipiZIDE 10 MG TAB PO SCH (21:55)
[2022-03-14] MEDS: LEVOTHYROXINE 88 MCG TAB PO SCH (05:28)
--- NOTE | 2022-03-14 09:26 | Progress Note ---
Subjective Date of service: 03/14/22 Principal diagnosis: Schizoaffective Disorder Subjective Comment: The patient was seen today. She says she's better and feels she could go home. She denies SI/HI or hallucinations of any kind. The patient will discharge tomorrow once is able to set up resources to ensure continuity of mental wellness. REVIEW OF SYSTEMS Constitutional: Negative for weight loss ENT: Negative for stridor Respiratory: Negative for cough or hemoptysis All other systems reviewed and are negative MENTAL STATUS EXAMINATION General Appearance and Behavior: Age appropriate, wearing appropriate clothes, cooperative, polite with questioning, good eye contact Cooperation: cooperative Psychomotor Behavior: Psychomotor normal Mood: a lot better Affect and affective range: congruent with stated affect Thought Process: Goal directed Thought Content: None Speech: Normal volume, Regular rate and rhythm Suicidal Ideation:Denies Homicidal Ideation: Denies Hallucination: Denies Delusions: None Impulse Control: Limited Insight and Judgment: Limited Memory: Intact Attention: attentive Orientation: Alert and oriented Diagnosis: Schizoaffective Disorder Treatment Plan Patient admitted for inpatient psychiatric evaluation, medication adjustment and close monitoring The patient's behavior, mood, sleep and appetite will be closely monitored. Patient enrolled in individual and group therapeutic sessions and encouraged to attend. Patient provided with a safe and structured environment. Patient's physical health needs will be addressed by the Hospitalist. Hospitalist Consulted Labs including CBC, CMP, Lipid profile and Hemoglobin A1C levels ordered for baseline reference Social Assessment will be completed and the School Boat Driver will work with patient and family to ensure a suitable and safe disposition Medication adjustment will be made as clinically indicated Mirtazepine 30mg po qhs Usual Wellness Advent/Preservation: - Start Trazodone 50 mg po QHS & 50 mg po QHS PRN between 10 PM & 2 AM for insomnia - Start Melatonin 5 mg po QHS to promote circadian rhythm The patient agreed on the treatment plan, understood the risk, benefit, alternative treatment, potential consequence of no treatment, and gave informed consent. Estimated days:6 Post hospital care: primary care provider, psychiatric provider Case staffed with Dr. Tee Medications and Allergies Allergies Allergy/AdvReac Type Severity Reaction Status Date / Time Penicillins Allergy Rash Verified 03/06/22 18:02 prochlorperazine Allergy Seizure Verified 03/06/22 18:03 [From Compazine] codeine AdvReac Vomiting Verified 03/06/22 18:04 Home Medications Medication Instructions Recorded Confirmed Last Taken Type ARIPiprazole [Abilify] 30 mg PO QDAY 03/06/22 03/06/22 Unknown History AtorvaSTATin [Lipitor] 20 mg PO QHS 03/06/22 03/06/22 Unknown History Levothyroxine [Synthroid] 88 mcg PO QAM 03/06/22 03/06/22 Unknown History Mirtazapine [Remeron] 30 mg PO QHS 03/06/22 03/06/22 Unknown History Trazodone HCl 150 mg PO QHS 03/06/22 03/06/22 Unknown History Venlafaxine [Effexor] 75 mg PO QDAY 03/06/22 03/06/22 Unknown History carvediloL [Coreg] 3.125 mg PO BID 03/06/22 03/06/22 Unknown History glipiZIDE [Glucotrol] 1 tab PO BID 03/06/22 03/06/22 Unknown History hydrOXYzine HCL [Atarax] 25 mg PO QDAY 03/06/22 03/06/22 Unknown History metFORMIN [Glucophage] 500 mg PO BID 03/06/22 03/06/22 Unknown History ARIPiprazole [Aripiprazole] 30 mg PO DAILY 03/07/22 03/07/22 Unknown History Venlafaxine HCl [Venlafaxine HCl 150 mg PO DAILY 03/07/22 03/07/22 Unknown History ER] Active Meds: Active Medications Aripiprazole (Aripiprazole 15 Mg Tab) 30 mg PO QDAY [facility] Last Admin: 03/13/22 10:16 Dose: 30 mg Atorvastatin Calcium (Atorvastatin 20 Mg Tab) 20 mg PO QHS [facility] Last Admin: 03/13/22 21:54 Dose: 20 mg Carvedilol (Carvedilol 3.125 Mg Tab) 3.125 mg PO BID [facility] Last Admin: 03/13/22 21:53 Dose: Not Given [facility] ([facility] 10 Mg Tab) [facility] Admin: 03/13/22 21:55 Dose: 10 mg Hydroxyzine HCl (Hydroxyzine Hcl 25 Mg Tab) 25 mg PO QDAY [facility] Last Admin: 03/13/22 10:17 Dose: 25 mg Insulin Human Lispro (Insulin Lispro 100 Unit/Ml) 0 unit SUB-Q [facility] Last Admin: 03/13/22 21:55 Dose: Not Given Levothyroxine Sodium (Levothyroxine 88 Mcg Tab) 88 mcg PO DAILY@0600 [facility] Last Admin: 03/14/22 05:28 Dose: 88 mcg Metformin HCl (Metformin 500 Mg Tab) 1,000 mg PO BIDDIAB [facility] Last Admin: 03/13/22 16:52 Dose: 1,000 mg Mirtazapine (Mirtazapine 30 Mg Tab) 30 mg PO QHS [facility] Last Admin: 03/13/22 21:55 Dose: 30 mg Trazodone HCl (Trazodone 50 Mg Tab) 150 mg PO QHS [facility] Last Admin: 03/13/22 21:54 Dose: 150 mg Venlafaxine HCl (Venlafaxine 75 Mg Tab) 225 mg PO DAILY [facility] Last Admin: 03/13/22 10:16 Dose: 225 mg Results - Results Labs/Vitals: Laboratory Last Values WBC 9.0 K/mm3 (4.5-11.0) 03/08/22 10:37 RBC 4.43 M/mm3 (3.65-5.03) 03/08/22 10:37 Hgb 13.0 gm/dl (10.1-14.3) 03/08/22 10:37 Hct 38.6 % (30.3-42.9) 03/08/22 10:37 MCV 87 fl (79-97) 03/08/22 10:37 MCH 29 pg (28-32) 03/08/22 10:37 MCHC 34 % (30-34) 03/08/22 10:37 RDW 13.5 % (13.2-15.2) 03/08/22 10:37 Plt Count 268 K/mm3 (140-440) 03/08/22 10:37 Lymph % (Auto) 24.4 % (13.4-35.0) 03/08/22 10:37 [place] % (Auto) 9.3 % (0.0-7.3) H 03/08/22 10:37 Eos % (Auto) 1.6 % (0.0-4.3) 03/08/22 10:37 Baso % (Auto) 0.1 % (0.0-1.8) 03/08/22 10:37 Lymph # (Auto) 2.2 K/mm3 (1.2-5.4) 03/08/22 10:37 [place] # (Auto) 0.8 K/mm3 (0.0-0.8) 03/08/22 10:37 Eos # (Auto) 0.1 K/mm3 (0.0-0.4) 03/08/22 10:37 Baso # (Auto) 0.0 K/mm3 (0.0-0.1) 03/08/22 10:37 Seg Neutrophils % 64.6 % (40.0-70.0) 03/08/22 10:37 Seg Neutrophils # 5.8 K/mm3 (1.8-7.7) 03/08/22 10:37 Sodium 134 mmol/L (137-145) L 03/11/22 09:20 Potassium 4.6 mmol/L (3.6-5.0) 03/11/22 09:20 Chloride 97.0 mmol/L (98-107) L 03/11/22 09:20 Carbon Dioxide 26 mmol/L (22-30) 03/11/22 09:20 Anion Gap 16 mmol/L 03/11/22 09:20 BUN 36 mg/dL (7-17) H 03/11/22 09:20 Creatinine 1.1 mg/dL (0.6-1.2) 03/11/22 09:20 Estimated GFR 52 ml/min 03/11/22 09:20 BUN/Creatinine Ratio 33 % 03/11/22 09:20 Glucose 327 mg/dL (65-100) H 03/11/22 09:20 POC Glucose 149 mg/dL (70-105) H 03/13/22 19:59 Calcium 9.6 mg/dL (8.4-10.2) 03/11/22 09:20 Total Bilirubin 0.30 mg/dL (0.1-1.2) 03/08/22 10:37 AST 39 units/L (5-40) 03/08/22 10:37 ALT 34 units/L (7-56) 03/08/22 10:37 Alkaline Phosphatase 97 units/L (35-129) 03/08/22 10:37 Total Protein 6.0 g/dL (6.3-8.2) L 03/08/22 10:37 Albumin 4.0 g/dL (3.9-5) 03/08/22 10:37 Albumin/Globulin Ratio 2.0 % 03/08/22 10:37 Triglycerides 111 mg/dL (2-149) 03/08/22 10:37 Cholesterol 168 mg/dL (50-199) 03/08/22 10:37 LDL Cholesterol Direct 81 mg/dL (50-130) 03/08/22 10:37 HDL Cholesterol 66 mg/dL (40-59) H 03/08/22 10:37 Cholesterol/HDL Ratio 2.54 % 03/08/22 10:37 TSH 7.980 mlU/mL (0.270-4.200) H 03/08/22 10:37 Last Vital Signs Temp 98.4 F 03/13/22 19:36 Pulse 99 H 03/13/22 19:36 Resp 18 03/13/22 19:36 BP 105/63 03/13/22 19:36 Pulse Ox 98 03/13/22 19:36
[2022-03-14] MEDS: ARIPiprazole 15 MG TAB PO SCH (10:49)
[2022-03-14] MEDS: carvediloL 3.125 MG TAB PO SCH ×2 (10:50→21:36)
[2022-03-14] MEDS: VENLAFAXINE 75 MG TAB PO SCH (10:50)
[2022-03-14] MEDS: hydrOXYzine HCL 25 MG TAB PO SCH (10:51)
[2022-03-14] MEDS: INSULIN LISPRO 100 UNIT/ML SUB-Q SCH ×4 (10:54→21:00)
[2022-03-14] MEDS: metFORMIN 500 MG TAB PO SCH ×2 (11:07→16:53)
--- NOTE | 2022-03-14 12:09 | Discharge Summary ---
Providers - Providers Date of Admission: 03/06/22 20:56 Date of discharge: 03/14/22 Attending physician: SEBASTIAN VELASQUEZ MD 03/06/22 19:23 Consult to Physician [CONS] Routine Comment: Consulting Provider: MILDRED [facility] Physician Instructions: Reason For Exam: new admit Primary care physician: ASSISTANT DIRECTOR OF SECURITY Hospitalization Reason for admission: depression Admitting Diagnosis: F25.9 - SCHIZOAFFECTIVE DISORDER, UNSPECIFIED Condition: Stable Disposition: 01 HOME / SELF CARE / HOMELESS Time spent for discharge: 35 Allergies/Adverse Reactions: Allergies Penicillins Allergy (Verified 03/06/22 18:02) Rash prochlorperazine [From Compazine] Allergy (Verified 03/06/22 18:03) Seizure codeine Adverse Reaction (Verified 03/06/22 18:04) Vomiting Vital Signs: Last Vital Signs Temp 98.4 F 03/13/22 19:36 Pulse 98 H 03/14/22 10:50 Resp 18 03/13/22 19:36 BP 119/61 03/14/22 10:50 Pulse Ox 98 03/13/22 19:36 Last Lab: Laboratory Last Values WBC 9.0 K/mm3 (4.5-11.0) 03/08/22 10:37 RBC 4.43 M/mm3 (3.65-5.03) 03/08/22 10:37 Hgb 13.0 gm/dl (10.1-14.3) 03/08/22 10:37 Hct 38.6 % (30.3-42.9) 03/08/22 10:37 MCV 87 fl (79-97) 03/08/22 10:37 MCH 29 pg (28-32) 03/08/22 10:37 MCHC 34 % (30-34) 03/08/22 10:37 RDW 13.5 % (13.2-15.2) 03/08/22 10:37 Plt Count 268 K/mm3 (140-440) 03/08/22 10:37 Lymph % (Auto) 24.4 % (13.4-35.0) 03/08/22 10:37 [place] % (Auto) 9.3 % (0.0-7.3) H 03/08/22 10:37 Eos % (Auto) 1.6 % (0.0-4.3) 03/08/22 10:37 Baso % (Auto) 0.1 % (0.0-1.8) 03/08/22 10:37 Lymph # (Auto) 2.2 K/mm3 (1.2-5.4) 03/08/22 10:37 [place] # (Auto) 0.8 K/mm3 (0.0-0.8) 03/08/22 10:37 Eos # (Auto) 0.1 K/mm3 (0.0-0.4) 03/08/22 10:37 Baso # (Auto) 0.0 K/mm3 (0.0-0.1) 03/08/22 10:37 Seg Neutrophils % 64.6 % (40.0-70.0) 03/08/22 10:37 Seg Neutrophils # 5.8 K/mm3 (1.8-7.7) 03/08/22 10:37 Sodium 134 mmol/L (137-145) L 03/11/22 09:20 Potassium 4.6 mmol/L (3.6-5.0) 03/11/22 09:20 Chloride 97.0 mmol/L (98-107) L 03/11/22 09:20 Carbon Dioxide 26 mmol/L (22-30) 03/11/22 09:20 Anion Gap 16 mmol/L 03/11/22 09:20 BUN 36 mg/dL (7-17) H 03/11/22 09:20 Creatinine 1.1 mg/dL (0.6-1.2) 03/11/22 09:20 Estimated GFR 52 ml/min 03/11/22 09:20 BUN/Creatinine Ratio 33 % 03/11/22 09:20 Glucose 327 mg/dL (65-100) H 03/11/22 09:20 POC Glucose 412 mg/dL (70-105) H 03/14/22 11:46 Calcium 9.6 mg/dL (8.4-10.2) 03/11/22 09:20 Total Bilirubin 0.30 mg/dL (0.1-1.2) 03/08/22 10:37 AST 39 units/L (5-40) 03/08/22 10:37 ALT 34 units/L (7-56) 03/08/22 10:37 Alkaline Phosphatase 97 units/L (35-129) 03/08/22 10:37 Total Protein 6.0 g/dL (6.3-8.2) L 03/08/22 10:37 Albumin 4.0 g/dL (3.9-5) 03/08/22 10:37 Albumin/Globulin Ratio 2.0 % 03/08/22 10:37 Triglycerides 111 mg/dL (2-149) 03/08/22 10:37 Cholesterol 168 mg/dL (50-199) 03/08/22 10:37 LDL Cholesterol Direct 81 mg/dL (50-130) 03/08/22 10:37 HDL Cholesterol 66 mg/dL (40-59) H 03/08/22 10:37 Cholesterol/HDL Ratio 2.54 % 03/08/22 10:37 TSH 7.980 mlU/mL (0.270-4.200) H 03/08/22 10:37 Core Measure Documentation - Palliative Care Palliative Care/ Comfort Measures: Not Applicable - Core Measures Any of the following diagnoses?: none Exam - Constitutional Vitals: Temp Pulse Resp BP Pulse Ox 98.4 F 98 H 18 119/61 98 03/13/22 19:36 03/14/22 10:50 03/13/22 19:36 03/14/22 10:50 03/13/22 19:36 General appearance: Present: no acute distress - EENT Eyes: Present: PERRL, EOM intact ENT: hearing intact, clear oral mucosa - Neck Neck: Present: supple, normal ROM - Respiratory Respiratory effort: normal Plan Activity: advance as tolerated Weight Bearing Status: Weight Bear as Tolerated Care Plan Goals: Maintain good and stable mental health Assessment: Schizoaffective Disorder Follow up with: PRIMARY CARE, [Primary Care Provider] - 7 Days Prescriptions: traZODone [Desyrel] 150 mg PO QHS #30 tablet hydrOXYzine HCL [Atarax] 25 mg PO QDAY #30 hydrOXYzine HCL [Atarax] 25 mg PO QDAY #30 tablet
[2022-03-14 19:45] VITALS: BP 129/68
[2022-03-14] MEDS: glipiZIDE 10 MG TAB PO SCH (21:00)
[2022-03-14] MEDS: traZODone 50 MG TAB PO SCH (21:00)
[2022-03-14] MEDS: MIRTAZAPINE 30 MG TAB PO SCH (21:37)
== END 2022-03-14 21:15 | disposition home or self-care (01) | DRG 885 ==
LOC: 3A 12:44 → UNDOADMIN 12:44 → 5A 20:56
PROVIDERS: ADMIT Psychiatry & Neurology Psychiatry; ATTEND Psychiatry & Neurology Psychiatry
DX: F25.9 Schizoaffective disorder, unspecified (principal); N17.0 Acute kidney failure with tubular necrosis; E11.9 Type 2 diabetes mellitus without complications; I25.10 Atherosclerotic heart disease of native coronary artery without angina pectoris; I50.9 Heart failure, unspecified; I11.0 Hypertensive heart disease with heart failure; E03.9 Hypothyroidism, unspecified
CPT/HCPCS: 36415; 80048; 80053; 80061; 82962; 84443; 85025; G0378; Q0177; Q9967; J1815